=== PATIENT | female | born 1935 | race Caucasian/White ===

== ENCOUNTER 2017-01-20 09:12 | Inpatient (IN) | payer MEDICARE, OTHER ==
[~2017-01-20] VITALS: Ht 170.2 cm; Wt 70.0 kg
--- NOTE | 2017-01-20 09:26 | PD ---
HPI Chief Complaint: agitated Time Seen by Provider: 09:21 Travel History International Travel<30 days: No Contact w/Intl Traveler<30days: No Traveled to known affect area: No History of Present Illness HPI 81-year-old female patient with history of dementia, recently started on Namenda , living with family for 3 weeks, patient's had recently, presents back to the ER today because she has been getting agitated over the last few days, hitting and fighting with family, biting at people, and has been Hammonds acted. She is somewhat disoriented, was found by EMS sitting on the driveway. Does not appear to have any injuries. However, not a reliable historian. It is noted that the new medication can have agitation as a side effect. Family had called to primary care physician and had been told to stop the medication. Last dose was last night. Modifying Factors: None Associated Signs & Symptoms: Disorientation, agitation Risk Factors: New medication, dementia PFSH Social History Tobacco Use: No Allergies-Medications (Allergen,Severity, Reaction): Coded Allergies: Aspirin (Verified Allergy, Severe, Rash, 01/20/17) Penicillin (Verified Allergy, Severe, Rash, 01/20/17) Sulfa (Verified Adverse Reaction, Severe, Nausea/Vomiting, 01/20/17) Reported Meds & Prescriptions Reported Meds & Active Scripts Active Reported Klor-Con 10 (Potassium Chloride) 10 Meq Tab 10 Meq PO DAILY Furosemide 20 Mg Tab 20 Mg PO DAILY Dulcolax Stool Softener (Docusate Sodium) 100 Mg Cap 100 Mg PO BID Synthroid (Levothyroxine Sodium) 175 Mcg Tab 175 Mcg PO DAILY Spiriva Handihaler (Tiotropium Inh) 18 Mcg Cap 18 Mcg INH DAILY 1 capsule = 18 mcg Simvastatin 10 Mg Tab 10 Mg PO DAILY Proair Hfa 8.5 GM Inh (Albuterol Sulfate) 90 Mcg/Act Aer 1 Puff INH Q4H PRN 108 mcg/actuation Nitrostat SL (Nitroglycerin) 0.4 Mg Subl 0.4 Mg SL DIRECTED PRN 1 tablet under the tongue as needed for chest pain. Repeat every 5 minutes for a total of 3 DOSES or call 911 if NO relief. Methadone (Methadone HCl) 10 Mg Tab 10 Mg PO Q6HR PRN Benicar (Olmesartan) 40 Mg Tab 40 Mg PO DAILY Review of Systems ROS Limitations: Altered Mental Status Physical Exam Narrative GENERAL: Well-developed elderly white female who is awake and oriented 2, mildly anxious in the ER but directable. SKIN: Focused skin assessment warm/dry. HEAD: Atraumatic. Normocephalic. EYES: Pupils equal and round. No scleral icterus. No injection or drainage. ENT: No nasal bleeding or discharge. Mucous membranes pink and moist. NECK: Trachea midline. No JVD. CARDIOVASCULAR: Regular rate and rhythm. No murmur appreciated. RESPIRATORY: No accessory muscle use. Clear to auscultation. Breath sounds equal bilaterally. GASTROINTESTINAL: Abdomen soft, non-tender, nondistended. Hepatic and splenic margins not palpable. Pelvis: Stable and nontender to palpation. MUSCULOSKELETAL: No obvious deformities. No clubbing. No cyanosis. No edema. NEUROLOGICAL: Awake and alert. No obvious cranial nerve deficits. Motor grossly within normal limits. Normal speech. PSYCHIATRIC: Mildly anxious, disoriented . Data Data Last Documented VS Vital Signs Date Time Temp Pulse Resp B/P Pulse Ox O2 Delivery O2 Flow Rate FiO2 01/20/17 09:28 98.1 73 20 153/63 99 Orders Electrocardiogram (01/20/17 09:21) Complete Blood Count With Diff (01/20/17 09:21) Comprehensive Metabolic Panel (01/20/17 09:21) Urinalysis - C+S If Indicated (01/20/17 09:21) Chest, Single Ap (01/20/17 09:21) Ct Brain W/O Iv Contrast(Rout) (01/20/17 09:21) Blood Glucose (01/20/17 09:21) Ecg Monitoring (01/20/17:21) Iv Access Insert/Monitor (01/20/17 09:21) Oximetry (01/20/17 09:21) Pelvis, Ap Only (Routine) (01/20/17 09:21) Urine Culture (01/20/17 10:00) Potassium, Serum (K) (01/20/17 10:26) B-Type Natriuretic Peptide (01/20/17 10:44) Blood Culture (01/20/17 12:30) Lactic Acid Sepsis Protocol (01/20/17 12:30) Ceftriaxone Inj (Rocephin Inj) (01/20/17 12:30) Azithromycin Inj (Zithromax Inj) (01/20/17 12:30) Acetaminophen (Tylenol) (01/20/17 13:30) Labs Laboratory Tests Test 01/20/17 01/20/17 08:40 10:00 White Blood Count 5.7 TH/MM3 Red Blood Count 3.69 MIL/MM3 Hemoglobin 11.7 GM/DL Hematocrit 34.1 % Mean Corpuscular Volume 92.4 FL Mean Corpuscular Hemoglobin 31.8 PG Mean Corpuscular Hemoglobin 34.4 % Concent Red Cell Distribution Width 13.6 % Platelet Count 115 TH/MM3 Mean Platelet Volume 9.5 FL Neutrophils (%) (Auto) 44.7 % Lymphocytes (%) (Auto) 41.2 % Monocytes (%) (Auto) 8.6 % Eosinophils (%) (Auto) 5.0 % Basophils (%) (Auto) 0.5 % Neutrophils # (Auto) 2.6 TH/MM3 Lymphocytes # (Auto) 2.4 TH/MM3 Monocytes # (Auto) 0.5 TH/MM3 Eosinophils # (Auto) 0.3 TH/MM3 Basophils # (Auto) 0.0 TH/MM3 CBC Comment DIFF FINAL Differential Comment Sodium Level 139 MEQ/L Potassium Level 5.8 MEQ/L Chloride Level 109 MEQ/L Carbon Dioxide Level 23.3 MEQ/L Anion Gap 7 MEQ/L Blood Urea Nitrogen 86 MG/DL Creatinine 1.86 MG/DL Estimat Glomerular Filtration 26 ML/MIN Rate Random Glucose 104 MG/DL Calcium Level 9.3 MG/DL Total Bilirubin 0.6 MG/DL Aspartate Amino Transf 17 U/L (AST/SGOT) Alanine Aminotransferase 14 U/L (ALT/SGPT) Alkaline Phosphatase 64 U/L B-Type Natriuretic Peptide 83 PG/ML Total Protein 8.2 GM/DL Albumin 3.8 GM/DL Urine Color YELLOW Urine Turbidity CLEAR Urine pH 5.0 Urine Specific [place] 1.014 Urine Protein NEG mg/dL Urine Glucose (UA) NEG mg/dL Urine Ketones NEG mg/dL Urine Occult Blood NEG Urine Nitrite NEG Urine Bilirubin NEG Urine Urobilinogen LESS THAN 2.0 MG/DL Urine Leukocyte Esterase NEG Urine RBC LESS THAN 1 /hpf Urine WBC LESS THAN 1 /hpf Urine Squamous Epithelial <1 /hpf Cells Urine Bacteria RARE /hpf Urine Hyaline Casts 13 /lpf Urine Mucus FEW /lpf Microscopic Urinalysis Comment CATH-CULTURE IND MDM Medical Decision Making Medical Screen Exam Complete: Yes Emergency Medical Condition: Yes Medical Record Reviewed: Yes Interpretation(s) EKG shows NSR, no ST elevation or depression, and no arrhythmias. No significant T-wave inversions. Last 24 hours Impressions Pelvis X-Ray 01/20/17920 Signed Impressions: Service Date/Time: Friday, January 20, 2017 09:35 - CONCLUSION: No acute disease. Sd Wen MD Head CT 01/20/17920 Signed Impressions: Service Date/Time: Friday, January 20, 2017 10:07 - CONCLUSION: Age- appropriate atrophy. No acute findings. Prakash Oliver MD Laboratory Tests Test 01/20/17 01/20/17 08:40 10:00 Red Blood Count 3.69 MIL/MM3 (4.00-5.30) Hematocrit 34.1 % (35.0-46.0) Platelet Count 115 TH/MM3 (150-450) Monocytes (%) (Auto) 8.6 % (0.0-8.0) Eosinophils (%) (Auto) 5.0 % (0.0-4.0) Potassium Level 5.8 MEQ/L (3.5-5.1) Chloride Level 109 MEQ/L (98-107) Blood Urea Nitrogen 86 MG/DL (7-18) Creatinine 1.86 MG/DL (0.50-1.00) Estimat Glomerular Filtration 26 ML/MIN (>89) Rate Urine Bacteria RARE /hpf (NONE) Urine Mucus FEW /lpf (OCC) Differential Diagnosis Agitation, disorientationworsening dementia versus sepsis versus medication side effect versus acute intracranial processes Narrative Course Chest x-ray shows bilateral infiltrates questionable for underlying bilateral pneumonia versus pulmonary edema. BNP is unremarkable. Lab work was otherwise unremarkable for significant lateral light abnormalities. CT of the brain did not show any signs of acute issues or injuries. At this point, considering the pulmonary findings on chest x-ray, patient will be started on IV antibiotics as precaution. Plan to admit the patient for further evaluation and treatment. Case is discussed with Dr. Streeter for admission. Diagnosis Primary Impression: Pneumonia Additional Impression: Altered mental status Admitting Information Admitting Physician Requests: Admit Kenya Bernard MD Jan 20, 2017 09:26
[2017-01-20 09:28] VITALS: BP 153/63; PULSE 73; RESP 20; TEMP 98.1; O2SAT 99
[2017-01-20] MEDS ORDERED: POTA-243 PO (09:39)
[2017-01-20] MEDS ORDERED: SIMV10TA PO (09:39)
[2017-01-20] MEDS ORDERED: METH10TA PO (09:39)
[2017-01-20] MEDS ORDERED: NITR0.4S SL (09:39)
[2017-01-20] MEDS ORDERED: SPIRCAP INH (09:39)
[2017-01-20] MEDS ORDERED: BENI40TA3 PO (09:39)
[2017-01-20] MEDS ORDERED: DULC100C PO (09:39)
[2017-01-20] MEDS ORDERED: FURO20TA PO (09:39)
[2017-01-20] MEDS ORDERED: ALBUAER3 INH (09:39)
[2017-01-20] MEDS ORDERED: SYNT175T PO (09:39)
[2017-01-20 09:59] LABS: AUTOMATED NEUTROPHIL # 2.6 TH/MM3 (1.8-7.7); BASOPHIL % 0.5 % (0.0-2.0); EOSINOPHIL # 0.3 TH/MM3 (0-0.4); HEMATOCRIT 34.1 % (35.0-46.0); HEMO FLAGS DIFF FINAL; LYMPH % 41.2 % (9.0-44.0); LYMPHOCYTE # 2.4 TH/MM3 (1.0-4.8); MEAN CELL VOLUME 92.4 FL (80.0-100.0); MEAN CORPUSCULAR HEMOGLOBIN 31.8 PG (27.0-34.0); MEAN CORPUSCULAR HGB CONC 34.4 % (32.0-36.0); MONO % 8.6 % (0.0-8.0); NEUT % 44.7 % (16.0-70.0); PLATELET COUNT 115 TH/MM3 (150-450); RED BLOOD COUNT 3.69 MIL/MM3 (4.00-5.30); RED CELL DISTRIBUTION WIDTH 13.6 % (11.6-17.2); WHITE BLOOD COUNT 5.7 TH/MM3 (4.0-11.0)
[2017-01-20 10:16] LABS: BACTERIA, URINE RARE /hpf; BLOOD, URINE NEG (NEG); GLUCOSE,URINE NEG (NEG); HYALINE CAST, URINE 13 /lpf (RARE); KETONE, URINE NEG (NEG); MUCUS URINE FEW /lpf (OCC); NITRITE,URINE NEG (NEG); SQUAMOUS EPITHELIAL CELL URINE <1 /hpf (0-5); URINE COLOR YELLOW (YELLW/STRAW)
[2017-01-20 10:17] LABS: COMMENT (UR) CATH-CULTURE IND; CULTURE IF INDICATED CATH CULTURE IND
[2017-01-20 10:19] LABS: ALKALINE PHOSPHATASE 64 U/L (45-117); TOTAL BILIRUBIN ADULT 0.6 MG/DL (0.2-1.0)
[2017-01-20 10:20] LABS: ALT (GPT) 14 U/L (10-53); ANION GAP 7 MEQ/L (5-15); BICARBONATE 23.3 MEQ/L (21.0-32.0); BLOOD UREA NITROGEN 86 MG/DL (7-18); CHLORIDE 109 MEQ/L (98-107); GLOMERULAR FILTRATION RATE 26 ML/MIN (>89); SODIUM (NA) 139 MEQ/L (136-145)
[2017-01-20 10:21] LABS: AST (GOT) 17 U/L (15-37); POTASSIUM 5.8 MEQ/L (3.5-5.1)
--- NOTE | 2017-01-20 10:27 | RADRPT ---
EXAM DATE/TIME: 01/20/2017 09:35 [facility] COMPARISON: No previous studies available for comparison. INDICATIONS : Pelvic discomfort. MEDICAL HISTORY : None. SURGICAL HISTORY : None. ENCOUNTER: Initial ACUITY: 1 day PAIN SCORE: Non-responsive. LOCATION: pelvis FINDINGS: A single frontal view of the pelvis demonstrates no evidence of fracture. The bony pelvic ring is in tact. Bony mineralization is normal. The soft tissues are intact. CONCLUSION: No acute disease. Sd Wen MD on January 20, 2017 at 10:25 Board Certified Radiologist. This report was verified electronically.
--- NOTE | 2017-01-20 10:31 | RADRPT ---
EXAM DATE/TIME: 01/20/2017 09:39 [facility] COMPARISON: No previous studies available for comparison. INDICATIONS : Syncope. MEDICAL HISTORY : None. SURGICAL HISTORY : None. ENCOUNTER: Initial ACUITY: 1 day PAIN SCORE: Non-responsive. LOCATION: Bilateral chest FINDINGS: There is diffuse patchiness within both lungs consistent with moderate pulmonary edema versus pneumon ia. Clinical correlation is recommended. The heart is top normal in size. CONCLUSION: 1. Diffuse patchiness within both lungs consistent with moderate pulmonary edema versus pneumonia. Clinical correlation is recommended. Sd Wen MD on January 20, 2017 at 10:24 Board Certified Radiologist. This report was verified electronically.
--- NOTE | 2017-01-20 10:47 | RADRPT ---
EXAM DATE/TIME: 01/20/2017 10:07 [facility] COMPARISON: No previous studies available for comparison. INDICATIONS : Altered mental status. RADIATION DOSE: 38.71 CTDIvol (mGy) MEDICAL HISTORY : Congestive heart failure. SURGICAL HISTORY : ENCOUNTER: Initial ACUITY: 1 day PAIN SCALE: 2/10 LOCATION: TECHNIQUE: Multiple contiguous axial images were obtained of the head. Using automated exposure control and adj ustment of the mA and/or kV according to patient size, radiation dose was kept as low as reasonably a chievable to obtain optimal diagnostic quality images. FINDINGS: CEREBRUM: The ventricles are normal for age. No evidence of midline shift, mass lesion, hemorrhage or acute in farction. No extra-axial fluid collections are seen. POSTERIOR FOSSA: The cerebellum and brainstem are intact. The 4th ventricle is midline. The cerebellopontine angle i s unremarkable. EXTRACRANIAL: The visualized portion of the orbits is intact. SKULL: The calvaria is intact. No evidence of skull fracture. CONCLUSION: Age-appropriate atrophy. No acute findings. Prakash Oliver MD on January 20, 2017 at 10:44 Board Certified Radiologist. This report was verified electronically.
[2017-01-20] MEDS ORDERED: cefTRIAXone INJ 1,000 MG in SODIUM CHLORIDE 0.9% INJ 100 ML IV ONE (12:30)
[2017-01-20] MEDS ORDERED: AZITHROMYCIN INJ 500 MG in SODIUM CHLOR 0.9% 250 ML INJ 250 ML IV ONE (12:30)
[2017-01-20] MEDS ORDERED: ACETAMINOPHEN 325 MG TAB PO ONE (13:30)
[2017-01-20] MEDS ORDERED: ONDANSETRON HCL 4 MG/2 ML VIAL IV PUSH ONE (14:15)
[2017-01-20] MEDS ORDERED: ONDANSETRON HCL 4 MG/2 ML VIAL IVP PRN (14:30)
[2017-01-20] MEDS ORDERED: BISACODYL 10 MG SUPP RECTAL PRN (14:30)
[2017-01-20] MEDS ORDERED: ACETAMINOPHEN 325 MG TAB PO PRN ×2 (14:30→22:00)
[2017-01-20] MEDS ORDERED: NALOXONE HCL 0.4 MG/ML AMP IV PRN (14:30)
[2017-01-20] MEDS ORDERED: ACETAMINOPHEN/HYDROcodone 325 MG/5 MG TAB PO PRN (14:30)
[2017-01-20] MEDS ORDERED: SODIUM CHLORIDE 0.9% FLUSH 10 ML FLUSH IV FLUSH PRN (14:30)
--- NOTE | 2017-01-20 14:39 | EKG ---
Date Performed: 01/20/2017 Time Performed: 09:47:31 PTAGE: 81 years EKG: Marked baseline artifact Sinus rhythm LOW QRS VOLTAGE IN PRECORDIAL LEADS BORDERLINE ECG I would repeat the electrocardiogram given the rosario boptimal quality NO PREVIOUS TRACING DOCTOR: Neri Taylor Interpretating Date/Time 01/20/2017 14:37:57
[2017-01-20] MEDS ORDERED: HALOPERIDOL LACTATE 5 MG/ML AMP IM PRN (14:45)
[2017-01-20 14:59] VITALS: BP 134/61; PULSE 77; RESP 20; O2SAT 96
[2017-01-20] MEDS ORDERED: ALBUTEROL SULFATE 90 MCG/ACT HFA 18 GM INHALER INH PRN (15:15)
--- NOTE | 2017-01-20 15:58 | EC ---
Study Study Date:01/20/2017 STUDY CONCLUSIONS SUMMARY - Left ventricle: The cavity size was normal. Wall thickness was normal. Systolic function was normal. The estimated ejection fraction was in the range of 50% to 55%. Wall motion was normal; there were no regional wall motion abnormalities. - Aortic valve: Valve area: 2.17cm^2 (Vmax). - Mitral valve: Valve area by pressure half-time: 2.12cm^2. - Pulmonary arteries: Systolic pressure was moderately increased. If LV function is below 40, please consider prescribing an ACEI or ARB or document rationale for non-use. PROCEDURE DATA STUDY STATUS: Elective. Procedure: Transthoracic echocardiography. Image quality was fair. Scanning was performed from the parasternal, apical, and subcostal acoustic windows. Study completion: The patient tolerated the procedure well. Transthoracic echocardiography. M-mode, complete 2D, complete spectral Doppler, and color Doppler. Height: Height: 67in. Weight: Weight: 153.7lb. Body mass index: BMI: 24.1kg/m^2. Body surface area: BSA: 1.81m^2. Patient status: Inpatient. CARDIAC ANATOMY LEFT VENTRICLE: The cavity size was normal. Wall thickness was normal. Systolic function was normal. The estimated ejection fraction was in the range of 50% to 55%. Wall motion was normal; there were no regional wall motion abnormalities. AORTIC VALVE: Trileaflet; normal thickness leaflets. Doppler: Transvalvular velocity was within the normal range. There was no stenosis. No regurgitation. Valve area: 2.17cm^2 (Vmax). Indexed valve area: 1.2cm^2/m^2 (Vmax). Peak gradient: 14mm Hg (S). AORTA: Aortic root: The aortic root was normal in size. MITRAL VALVE: Structurally normal valve. Doppler: Transvalvular velocity was within the normal range. There was no evidence for stenosis. Trace regurgitation. Valve area by pressure half-time: 2.12cm^2. Indexed valve area by pressure half-time: 1.17cm^2/m^2. Peak gradient: 2mm Hg (D). LEFT ATRIUM: The atrium was normal in size. RIGHT VENTRICLE: The cavity size was normal. Wall thickness was normal. PULMONIC VALVE: Doppler: Transvalvular velocity was within the normal range. There was no evidence for stenosis. No regurgitation. TRICUSPID VALVE: Structurally normal valve. Doppler: Transvalvular velocity was within the normal range. No regurgitation. Peak gradient: 42mm Hg (D). PULMONARY ARTERY: The main pulmonary artery was normal-sized. Systolic pressure was moderately increased. RIGHT ATRIUM: The atrium was normal in size. PERICARDIUM: There was no pericardial effusion. SYSTEMIC VEINS: Inferior vena cava: The vessel was normal in size. Patient weight: 153.7lb _Ejection fraction:_ 65-75% _Fractional shortening:_ 32% up to 5Kg 5-11.5Kg 11.6-22.9Kg 23-45Kg 45-57Kg Aortic Root 7-13 <17 13-22 17-27 17-27 LA diam 6-13 <23 24-38 33-47 37-40 RVID 10-17 7-15 7-15 7-18 8-17 LVIDd 12-22 <32 24-38 33-47 37-40 LVPW 2-4 3-6 5-7 6-8 7-8 IVS 2-4 3-6 5-7 6-8 7-8 BASIC MEASUREMENTS ADULT NORMAL Left ventricle LV internal dimension, ED, chordal *35.4 mm 43-52 level, PLAX LV internal dimension, ES, chordal *22.8 mm 23-38 level, PLAX Fractional shortening, chordal level, 36 % >29 PLAX LV posterior wall thickness, ED 8.2 mm IVS/LVPW ratio, ED 1.15 <1.3 Volume, ED, MOD, 1-plane 42 ml Volume, ES, MOD, 1-plane 14 ml Ejection fraction, MOD, 1-plane 67 % Stroke volume, MOD, 1-plane 28 ml Volume index, ED, MOD, 1-plane 23 ml/m^2 Volume index, ES, MOD, 1-plane 8 ml/m^2 Stroke index, MOD, 1-plane 15.5 ml/m^2 Ventricular septum Septal thickness, ED 9.43 mm Aortic valve Leaflet separation 18 mm 15-26 Aorta Root diameter, ED 27 mm Left atrium Anterior-posterior dimension 25 mm Anterior-posterior dimension index 1.38 cm/m^2 <2.2 Right ventricle RV internal dimension, ED, PLAX 24.3 mm 19-38 BASIC MEASUREMENTS ADULT NORMAL Aortic valve Leaflet separation 18 mm 15-26 Aorta Root diameter, ED 26 mm 20-37 DOPPLER MEASUREMENTS ADULT NORMAL Aortic valve Peak velocity, S 185 cm/s Peak gradient, S 14 mm Hg Valve area, Vmax 2.17 cm^2 Valve area index, Vmax 1.2 cm^2/m^2 Mitral valve Peak E-wave velocity 73.5 cm/s Peak A-wave velocity 116 cm/s Pressure half-time 104 ms Peak gradient, D 2 mm Hg Peak E/A ratio 0.6 Valve area, pressure half-time 2.12 cm^2 Valve area index, pressure half-time 1.17 cm^2/m^2 Tricuspid valve Peak gradient, D 42 mm Hg Maximal inflow velocity 324 cm/s Systemic veins Estimated CVP 10 mm Hg Pulmonic valve Peak velocity, S 126 cm/s LEGEND: Mean values are shown as u=mean value. Asterisk (*) veliz values outside specified normal range. Prepared and signed by Ashley Villalta [id number]
[2017-01-20] MEDS ORDERED: SODIUM CHLOR 0.9% 1000 ML INJ 1,000 ML IV SCH (16:00)
--- NOTE | 2017-01-20 16:47 | HHI.HP ---
HPI Service [facility] Primary Care Physician No Primary Care Physician Admission Diagnosis pneumonia/Hammonds act/agitation Diagnoses: Chief Complaint: agitation Travel History International Travel<30 Days: No Contact w/Intl Traveler <30 Da: No Traveled to Known Affected Are: No History of Present Illness 81-year-old female with history of dementia, hypothyroidism, HTN, HLD, COPD on home O2, CAD, possible CHF, presents under Hammonds act by [employer] for agitation. The Hammonds Act states "Ashley resides with her son, [id number]-hri, and grandchildren. [id number]-[id number] stated that she woke up angry. Became combative with family. Ashley fell in her driveway and refused to get up. Ashley refused any and all medical attention. She is on oxygen and has been without it for approximately one hour and thirty minutes. Ashley suffers from dementia and Alzheimer's and takes medication for it. Ashley is unable to determine if she needs care." Currently the patient is seen in the ER, she is awake, alert, but not oriented, only moaning. She does not answer any questions or follow any commands. Unable to obtain any reliable information from the patient therefore history collected from medical records and staff. Sitter at bedside states the patient was complaining of pain earlier but did not locate the pain. The sitter also states the patient was saying she did not want to live anymore. Per the VESSEL SPECIALIST, patient is transferred via [facility] , and no family has arrived to visit the patient. Reportedly the patient's one month ago and she has been declining ever since. Recently the patient's PCP started her on Namenda, however the family became concerned that this agitation may be a side effect therefore they called the PCP who recommended she stop the medication. Her last dose was last night . Upon arrival to the ER, CBC unremarkable, BMP with K5.8 (hemolyzed sample) , creatinine 1.86. Urinalysis negative. CXR showed diffuse patchiness in both lungs consistent with moderate pulmonary edema versus pneumonia. The patient started on IV Rocephin/azithromycin for pneumonia. Review of Systems ROS Limitations: Altered Mental Status, Poor Historian Past Family Social History Past Medical History dementia hypothyroidism HTN HLD COPD on home O2 CAD possible CHF Past Surgical History Unable to obtain Reported Medications Klor-Con 10 (Potassium Chloride) 10 Meq Tab 10 Meq PO DAILY Furosemide 20 Mg Tab 20 Mg PO DAILY Dulcolax Stool Softener (Docusate Sodium) 100 Mg Cap 100 Mg PO BID Synthroid (Levothyroxine Sodium) 175 Mcg Tab 175 Mcg PO DAILY Spiriva Handihaler (Tiotropium Inh) 18 Mcg Cap 18 Mcg INH DAILY 1 capsule = 18 mcg Simvastatin 10 Mg Tab 10 Mg PO DAILY Proair Hfa 8.5 GM Inh (Albuterol Sulfate) 90 Mcg/Act Aer 1 Puff INH Q4H PRN 108 mcg/actuation Nitrostat SL (Nitroglycerin) 0.4 Mg Subl 0.4 Mg SL DIRECTED PRN 1 tablet under the tongue as needed for chest pain. Repeat every 5 minutes for a total of 3 DOSES or call 911 if NO relief. Methadone (Methadone HCl) 10 Mg Tab 10 Mg PO Q6HR PRN Benicar (Olmesartan) 40 Mg Tab 40 Mg PO DAILY Allergies: Coded Allergies: Aspirin (Verified Allergy, Severe, Rash, 01/20/17) Penicillin (Verified Allergy, Severe, Rash, 01/20/17) Sulfa (Verified Adverse Reaction, Severe, Nausea/Vomiting, 01/20/17) Active Ordered Medications Current Medications Medications (Trade) Dose Ordered Sig/May Route Start Time Stop Time Status Last Admin (Ventolin Hfa Inh) 1 puff Q4H PRN INH 01/20/17 15:15 (Spiriva Inh) 18 mcg DAILY INH 01/21/17 09:00 (Synthroid) 75 mcg DAILY@0600 PO 01/21/17 06:00 (Cozaar) 100 mg DAILY PO 01/21/17 09:00 Pravastatin Sodium 20 mg 20 mg DAILY PO 01/21/17 09:00 (NS 1000 ml Inj) 1,000 ml @ 70 mls/hr [id number] IV 01/20/17 16:00 01/20/17 16:47 (NS Flush) 2 ml UNSCH PRN IV FLUSH 01/20/17 14:30 (NS Flush) 2 ml BID IV FLUSH 01/20/17 21:00 (Zofran Inj) 4 mg Q6H PRN IVP 4/18/17 14:30 01/20/17 16:49 (Dulcolax Supp) 10 mg DAILY PRN RECTAL 01/20/17 14:30 (Tylenol) 650 mg Q6H PRN PO 01/20/17 14:30 ([place] 5-325 Mg) 1 tab Q6H PRN PO 01/20/17 14:30 01/20/17 16:04 Naloxone HCl 0.4 mg 0.4 mg UNSCH PRN IV 01/20/17 14:30 Ceftriaxone Sodium 1000 mg/ Sodium Chloride 100 ml @ 200 mls/hr Q24H IV 01/21/17 14:00 (Zithromax Inj/ NS 250 ml Inj) 250 ml @ 250 mls/hr Q24H IV 01/21/17 16:00 (Haldol Inj) 2 mg Q8H PRN IM 01/20/17 14:45 01/20/17 16:48 (Synthroid) 100 mcg DAILY@0600 PO 01/21/17 06:00 Family History Unable to obtain Social History Unable to obtain Physical Exam Vital Signs Vital Signs Date Time Temp Pulse Resp B/P Pulse Ox O2 Delivery O2 Flow Rate FiO2 01/20/17 15:00 20 01/20/17 14:59 77 20 134/61 96 Room Air 01/20/17 09:28 98.1 73 20 153/63 99 Physical Exam GENERAL: Elderly female patient in NAD. Awake alert, not oriented, only moaning , not answering questions or following commands. SKIN: Warm and dry. No rash. HEAD: Normocephalic. Atraumatic. EYES: Pupils equal and round. No scleral icterus. No injection or drainage. ENT: No nasal bleeding or discharge. Mucous membranes pink and moist. NECK: Supple. Trachea midline. CARDIOVASCULAR: Regular rate and rhythm. S1, S2 noted. No murmur appreciated. RESPIRATORY: No accessory muscle use. Clear to auscultation. Breath sounds equal bilaterally. GASTROINTESTINAL: Abdomen soft, non-tender, nondistended. Normoactive bowel sounds x4. MUSCULOSKELETAL: No obvious deformities. Extremities without clubbing, cyanosis , or edema. NEUROLOGICAL: Awake and alert. Motor grossly within normal limits. PSYCHIATRIC: Anxious mood; insight and judgment poor. Laboratory Laboratory Tests Test 01/20/17 01/20/17 01/20/17 08:40 10:00 13:05 White Blood Count 5.7 Red Blood Count 3.69 Hemoglobin 11.7 Hematocrit 34.1 Mean Corpuscular Volume 92.4 Mean Corpuscular Hemoglobin 31.8 Mean Corpuscular Hemoglobin 34.4 Concent Red Cell Distribution Width 13.6 Platelet Count 115 Mean Platelet Volume 9.5 Neutrophils (%) (Auto) 44.7 Lymphocytes (%) (Auto) 41.2 Monocytes (%) (Auto) 8.6 Eosinophils (%) (Auto) 5.0 Basophils (%) (Auto) 0.5 Neutrophils # (Auto) 2.6 Lymphocytes # (Auto) 2.4 Monocytes # (Auto) 0.5 Eosinophils # (Auto) 0.3 Basophils # (Auto) 0.0 CBC Comment DIFF FINAL Differential Comment Sodium Level 139 Potassium Level 5.8 Chloride Level 109 Carbon Dioxide Level 23.3 Anion Gap 7 Blood Urea Nitrogen 86 Creatinine 1.86 Estimat Glomerular Filtration 26 Rate Random Glucose 104 Calcium Level 9.3 Total Bilirubin 0.6 Aspartate Amino Transf 17 (AST/SGOT) Alanine Aminotransferase 14 (ALT/SGPT) Alkaline Phosphatase 64 B-Type Natriuretic Peptide 83 Total Protein 8.2 Albumin 3.8 Urine Color YELLOW Urine Turbidity CLEAR Urine pH 5.0 Urine Specific [place] 1.014 Urine Protein NEG Urine Glucose (UA) NEG Urine Ketones NEG Urine Occult Blood NEG Urine Nitrite NEG Urine Bilirubin NEG Urine Urobilinogen LESS THAN 2.0 Urine Leukocyte Esterase NEG Urine RBC LESS THAN 1 Urine WBC LESS THAN 1 Urine Squamous Epithelial <1 Cells Urine Bacteria RARE Urine Hyaline Casts 13 Urine Mucus FEW Microscopic Urinalysis Comment CATH-CULTURE IND Lactic Acid Level 1.4 Date/Time Procedure Status Source Growth 01/20/17 12:55 Aerobic Blood Culture Received Blood Peripheral Pending 01/20/17 12:55 Anaerobic Blood Culture Received Blood Peripheral Pending 01/20/17 10:00 Urine Culture Received Urine Catheterized Urine Pending Result Diagram: 01/20/1740 01/20/17839 Imaging Last Impressions Pelvis X-Ray 01/20/17920 Signed Impressions: Service Date/Time: Friday, January 20, 2017 09:35 - CONCLUSION: No acute disease. Sd Wen MD Head CT 01/20/17920 Signed Impressions: Service Date/Time: Friday, January 20, 2017 10:07 - CONCLUSION: Age- appropriate atrophy. No acute findings. Prakash Oliver MD Chest X-Ray 01/20/17 0921 Signed Impressions: Service Date/Time: Friday, January 20, 2017 09:39 - CONCLUSION: 1. Diffuse patchiness within both lungs consistent with moderate pulmonary edema versus pneumonia. Clinical correlation is recommended. Sd Wen MD Assessment and Plan Assessment and Plan 81-year-old female with history of dementia, hypothyroidism, HTN, HLD, COPD on home O2, CAD, possible CHF, presents under Hammonds act by [employer] for agitation. The Hammonds Act states "Ashley resides with her son, [id number], and grandchildren. [id number] stated that she woke up angry. Became combative with family. Ashley fell in her driveway and refused to get up. Ashley refused any and all medical attention. She is on oxygen and has been without it for approximately one hour and thirty minutes. Ashley suffers from dementia and Alzheimer's and takes medication for it. Ashley is unable to determine if she needs care." Currently the patient is seen in the ER, she is awake, alert, but not oriented, only moaning. She does not answer any questions or follow any commands. Unable to obtain any reliable information from the patient therefore history collected from medical records and staff. Acute metabolic encephalopathy: Likely multifactorial with underlying dementia compounded with infection, pneumonia. Head CT images reviewed, unremarkable. CBC wnl, BMP with K5.8 (hemolyzed sample), creatinine 1.86. Urinalysis negative. Neuro checks. Consult PT/OT/ST. Avoid sedating medications/Benzos. Dementia with Agitation: under Hammonds Act. Hold Namenda as patient's PCP concerned patient may be having adverse reaction. Consult psychiatry. Haldol IM prn. Continue sitter. Community-acquired pneumonia: CXR showed diffuse patchiness in both lungs consistent with moderate pulmonary edema versus pneumonia. Continue with IV Rocephin/azithromycin. Check echo to eval for CHF. Gentle IVF. Monitor for improvement. Chronic respiratory failure on home O2 secondary to COPD: Unclear how many liters of oxygen she uses at home. Continue O2 via NC. Continue patient's Spiriva. Ventolin inhaler and Duonebs as needed. Hyperkalemia: K 5.9, hemolyzed sample. Check stat repeat K. Monitor BMP. CAMRYN: Cr 1.86, elevated BUN 86. Unknown baseline. Give gentle IVF. Avoid nephrotoxins. Repeat BMP in am. Hypothyroidism: chronic, continue patient's Synthroid. Check TSH in am. HTN/HLD: chronic, continue patient's Benicar and simvastatin. Monitor BP, adjust antihypertensives as needed. CAD, possible CHF: patient on Lasix as outpatient. BNP wnl. Check echocardiogram to eval for CHF. Hold Lasix for now with CAMRYN. Methadone Use: verified on E-forcse, patient last filled Methadone 10mg q6h # 120tabs on 12/24/[address] Jack in [place], [place], and previously prescribed by Dr. Rufino Kirby in [place]. Will hold methadone for now as patient is encephalopathic as above. Consider restarting if patient becomes more alert. DVT Prophylaxis: teds/SCDs Written by Patricia Villela, acting as scribe for Dr. Streeter on 01/20/17 at 16: 47. This note was transcribed by scribe Patricia Villela. I, Dr. Meseret Streeter personally performed the history, physical exam, and medical decision making; and confirmed the accuracy of the information in the transcribed note. Discussed Condition With Patient, sitter at bedside, ED MD, ED RN Physician Certification 2 Midnight Certification Type: Admission for Inpatient Services Order for Inpatient Services The services are ordered in accordance with Medicare regulations or non- Medicare payer requirements, as applicable. In the case of services not specified as inpatient-only, they are appropriately provided as inpatient services in accordance with the 2-midnight benchmark. Estimated LOS (days): 3 days is the estimated time the patient will need to remain in the hospital, assuming treatment plan goals are met and no additional complications. Post-Hospital Plan: Not yet determined Patricia Villela PA-C Jan 20, 2017 16:47 Meseret Streeter MD Jan 20, 2017 19:19
[2017-01-20 17:01] VITALS: RESP 20
[2017-01-20] MEDS ORDERED: RESP: ALBUTEROL 2.5 MG/IPRATROPIUM 0.5 MG NEB (PRN) NEB (18:45)
[2017-01-20] MEDS ORDERED: SODIUM POLYSTYRENE SULFONATE SUSP 15 GM/60 ML CUP PO ONE (20:00)
[2017-01-20] MEDS ORDERED: SODIUM CHLORIDE 0.9% FLUSH 10 ML FLUSH IV FLUSH SCH (21:00)
[2017-01-20] MEDS ORDERED: ALUMINUM/MAGNESIUM/SIMETH 30 ML CUP PO PRN (22:00)
[2017-01-20] MEDS ORDERED: MAGNESIUM HYDROXIDE SUSP 30 ML CUP PO PRN (22:00)
[2017-01-20] MEDS ORDERED: LORazepam 2 MG/ML VIAL - age > 65 yrs IM PRN (22:00)
[2017-01-20] MEDS ORDERED: LORazepam 0.5 MG TAB age > 65 yrs PO PRN (22:00)
[2017-01-21] MEDS ORDERED: LEVOTHYROXINE SODIUM 75 MCG TAB PO SCH (06:00)
[2017-01-21] MEDS ORDERED: LEVOTHYROXINE SODIUM 100 MCG TAB PO SCH (06:00)
[2017-01-21] MEDS ORDERED: TIOTROPIUM BROMIDE 18 MCG INH INH SCH (09:00)
[2017-01-21] MEDS ORDERED: PRAVASTATIN SOD 20 MG TAB PO SCH (09:00)
[2017-01-21] MEDS ORDERED: LOSARTAN 50 MG TAB PO SCH (09:00)
[2017-01-21] MEDS ORDERED: cefTRIAXone INJ 1,000 MG in SODIUM CHLORIDE 0.9% INJ 100 ML IV SCH (14:00)
[2017-01-21] MEDS ORDERED: AZITHROMYCIN INJ 500 MG in SODIUM CHLOR 0.9% 250 ML INJ 250 ML IV SCH (16:00)
== END 2017-01-20 22:29 | DRG 193 ==
LOC: NEPC 09:12 → NEDA 13:28 → NEDH 17:26
PROVIDERS: ADMIT Family Medicine; ATTEND Family Medicine
DX: J18.9 Pneumonia, unspecified organism (principal); G93.41 Metabolic encephalopathy; N17.9 Acute kidney failure, unspecified; F02.81 Dementia in other diseases classified elsewhere, unspecified severity, with behavioral disturbance; J96.10 Chronic respiratory failure, unspecified whether with hypoxia or hypercapnia; J44.0 Chronic obstructive pulmonary disease with (acute) lower respiratory infection; G30.9 Alzheimer's disease, unspecified; E03.9 Hypothyroidism, unspecified; E78.5 Hyperlipidemia, unspecified; I10 Essential (primary) hypertension; I25.10 Atherosclerotic heart disease of native coronary artery without angina pectoris; Z99.81 Dependence on supplemental oxygen
CPT/HCPCS: 70450; 71010; 72170; 80053; 81001; 83605; 83880; 84132; 85025; 87040; 87086; 93005; 93306; J0456; J0696; J1630; J2405; J7030; J7050

== ENCOUNTER 2017-01-20 22:30 | Inpatient (IN) | payer OTHER, MEDICARE ==
[~2017-01-20] VITALS: Ht 152.4 cm; Wt 84.0 kg
[2017-01-20 22:30] VITALS: BP 141/113; PULSE 101; RESP 20; O2SAT 94
[~2017-01-20 22:30] MED LIST: ALBUAER3 INH; BENI40TA3 PO; DULC100C PO; FURO20TA PO; METH10TA PO; NITR0.4S SL; POTA-243 PO; SIMV10TA PO; SPIRCAP INH; SYNT175T PO
[2017-01-20] MEDS ORDERED: LORazepam 2 MG/ML VIAL - age > 65 yrs IM PRN (23:00)
[2017-01-20] MEDS ORDERED: LORazepam 0.5 MG TAB age > 65 yrs PO PRN (23:00)
[2017-01-20] MEDS ORDERED: ACETAMINOPHEN 325 MG TAB PO PRN (23:00)
[2017-01-20] MEDS ORDERED: ALUMINUM/MAGNESIUM/SIMETH 30 ML CUP PO PRN (23:00)
[2017-01-20] MEDS ORDERED: MAGNESIUM HYDROXIDE SUSP 30 ML CUP PO PRN (23:00)
[2017-01-21 05:46] VITALS: BP 133/63; PULSE 81; RESP 16; TEMP 97.5; O2SAT 91
[2017-01-21] MEDS ORDERED: SODIUM POLYSTYRENE SULFONATE SUSP 15 GM/60 ML CUP PO ONE (08:15)
--- NOTE | 2017-01-21 09:29 | PD.CONS ---
[facility] By [facility] Reason for Consult Medical management Primary Care Physician Unknown Diagnoses: History of Present Illness 81-year-old female with history of dementia, hypothyroidism, HTN, HLD, COPD on home O2, CAD, possible CHF, presents under Hammonds act by [employer] for agitation. The Hammonds Act states "Ashley resides with her son, [id number], and grandchildren. [id number]-[id number] stated that she woke up angry. Became combative with family. Ashley fell in her driveway and refused to get up. Ashley refused any and all medical attention. She is on oxygen and has been without it for approximately one hour and thirty minutes. Ashley suffers from dementia and Alzheimer's and takes medication for it. Ashley is unable to determine if she needs care." Currently the patient is in the med/psych unit. She is awake but will not open her eyes. She will not follow commands. She shakes her head no when asked if she has any f/c, n/v, shortness of breath, chest pain or abdominal pain. Patient is a poor historian and I am unable to obtain any reliable information from the patient therefore history collected from review of the medical records. Review of Systems Attempted 10 point review of systems the patient not participatory secondary to cognitive impairment Past Family Social History Allergies: Coded Allergies: Aspirin (Verified Allergy, Severe, Rash, 01/20/17) Penicillin (Verified Allergy, Severe, Rash, 01/20/17) Sulfa (Verified Adverse Reaction, Severe, Nausea/Vomiting, 01/20/17) Past Medical History Dementia Hypothyroidism HTN HLD COPD on home O2 CAD possible CHF Past Surgical History Patient denies any previous surgical procedures but due to patients current mental status validity of response is questioned Reported Medications Klor-Con 10 (Potassium Chloride) 10 Meq Tab 10 Meq PO DAILY Furosemide 20 Mg Tab 20 Mg PO DAILY Dulcolax Stool Softener (Docusate Sodium) 100 Mg Cap 100 Mg PO BID Synthroid (Levothyroxine Sodium) 175 Mcg Tab 175 Mcg PO DAILY Spiriva Handihaler (Tiotropium Inh) 18 Mcg Cap 18 Mcg INH DAILY 1 capsule = 18 mcg Simvastatin 10 Mg Tab 10 Mg PO DAILY Proair Hfa 8.5 GM Inh (Albuterol Sulfate) 90 Mcg/Act Aer 1 Puff INH Q4H PRN 108 mcg/actuation Nitrostat SL (Nitroglycerin) 0.4 Mg Subl 0.4 Mg SL DIRECTED PRN 1 tablet under the tongue as needed for chest pain. Repeat every 5 minutes for a total of 3 DOSES or call 911 if NO relief. Methadone (Methadone HCl) 10 Mg Tab 10 Mg PO Q6HR PRN Benicar (Olmesartan) 40 Mg Tab 40 Mg PO DAILY Active Ordered Medications Current Medications Medications (Trade) Dose Ordered Sig/May Route Start Time Stop Time Status Last Admin (Ativan) 0.5 mg Q12H PRN PO 01/20/17 23:00 (Ativan Inj) 0.5 mg Q12H PRN IM 01/20/17 23:00 01/20/17 23:00 (Tylenol) 650 mg Q4H PRN PO 01/20/17 23:00 01/21/17 00:04 (Milk Of Magnesia Liq) 30 ml DAILY PRN PO 01/20/17 23:00 (Mag-Al Plus Susp Liq) 30 ml Q6H PRN PO 01/20/17 23:00 Sodium Polystyrene Sulfonate 15 gm 15 gm ONCE ONCE PO 01/21/17 08:15 01/21/17 08:16 UNV (Rocephin Inj/NS Inj) 100 ml @ 200 mls/hr Q24H IV 01/21/17 08:15 UNV (Zithromax) 250 mg DAILY PO 01/21/17 09:00 UNV Family History Unable to obtain due to patient's cognitive impairment Social History Unable to obtain due to patient's cognitive impairment Physical Exam Vital Signs Vital Signs Date Time Temp Pulse Resp B/P Pulse Ox O2 Delivery O2 Flow Rate FiO2 01/21/17 05:46 97.5 81 16 133/63 91 01/20/17 22:30 101 20 141/113 94 Physical Exam GENERAL: Elderly female patient in NAD. Awake, not oriented, will not open her eyes. Will not follow commands. SKIN: Warm and dry. No rash. HEAD: Normocephalic. Atraumatic. EYES: Patient will not open her eyes. ENT: No nasal bleeding or discharge. NECK: Supple. Trachea midline. CARDIOVASCULAR: Regular rate and rhythm. S1, S2 noted. No murmur appreciated. RESPIRATORY: No accessory muscle use. Clear to auscultation but poor effort. Breath sounds equal bilaterally. GASTROINTESTINAL: Abdomen soft, non-tender, nondistended. Normoactive bowel sounds x4. MUSCULOSKELETAL: No obvious deformities. Extremities without clubbing, cyanosis , or edema. NEUROLOGICAL: Awake. Will not follow commands. PSYCHIATRIC: Insight and judgment poor. Laboratory 01/20/17 0840 Imaging Pelvis X-Ray 01/20/17920 Signed Impressions: Service Date/Time: Friday, January 20, 2017 09:35 - CONCLUSION: No acute disease. Sd Wen MD Head CT 01/20/17920 Signed Impressions: Service Date/Time: Friday, January 20, 2017 10:07 - CONCLUSION: Age- appropriate atrophy. No acute findings. Prakash Oliver MD Chest X-Ray 01/20/17920 Signed Impressions: Service Date/Time: Friday, January 20, 2017 09:39 - CONCLUSION: 1. Diffuse patchiness within both lungs consistent with moderate pulmonary edema versus pneumonia. Clinical correlation is recommended. Sd Wen MD Assessment and Plan Assessment and Plan 81-year-old female with history of dementia admitted under Hammonds act by [employer] for increased agitation. Hospitalist service consulted for medical management of hypothyroidism, HTN, HLD, COPD on home O2, CAD, possible CHF and CAP. //Dementia with increased agitation admitted under Hammonds Act - Management per psychiatric team //Acute metabolic encephalopathy - Likely multifactorial with underlying dementia compounded with infection, pneumonia. - Head CT images reviewed and are unremarkable for acute process. - CBC wnl, Urinalysis negative - Consult PT/OT - Avoid sedating medications/Benzos. //Hyperkalemia - Initial potassium 5.8, repeat level yesterday 6.3 - possible hemolyzed sample. - Follow up on today's lab results which are ordered for this morning but have not yet been drawn. Order for nursing staff placed to please draw labs. - Kayexalate 30 g by mouth once - DuoNeb's for COPD and chronic respiratory failure ordered which should help with normalization of potassium level. //CAMRYN - Creatinine 1.86, unknown baseline - Possibly prerenal, due to poor oral intake and dehydration - Avoid nephrotoxic agents - Gentle IV fluid hydration - A.m. labs pending //Suspected community acquired pneumonia versus possible CHF - Chest x-ray at admission shows diffuse patchiness within both lungs consistent with moderate pulmonary edema versus pneumonia - IV ceftriaxone and by mouth azithromycin //Diastolic CHF - order BNP - Echocardiogram completed revealing HFpEF - monitor for s/sxs of fluid overload - hold home Lasix dose for now //Chronic respiratory failure on home O2 secondary to COPD - Unclear how many liters of oxygen she uses at home - Continue O2 via NC. - Continue patient's Spiriva - Duonebs //HTN - BP 133/63 - hold Benicar due to hyperkalemia and CAMRYN - monitor BP - clonidine prn with parameters //Hypothyroidism, chronic - continue patient's Synthroid - Check TSH //HLD: chronic - continue patient's simvastatin //Methadone Use - verified on E-forcse, patient last filled Methadone 10mg q6h #120tabs on by Dr. Lane Jack in [place], [place], and previously prescribed by Dr. Rufino Kirby in [place]. - Will hold methadone for now as patient is encephalopathic as above. Consider restarting if patient becomes more alert. DVT Prophylaxis: TEDs/SCDs Discussed with patient, nursing staff and Dr. Staley Discussed Condition With Nursing staff, patient and Dr. Staley The exam, history, and the medical decision-making described in the above note were completed with the assistance of the mid-level provider. I reviewed and agree with the findings presented. I attest that I had a [id number] encounter with the patient on the same day, and personally performed and documented my assessment and findings in the medical record. pt somnolent, wakes for exam. denies pain or SOB. transfer to main hospital for encephalopathy, camryn, may benefit from SNF placement. Ramona Vaughan Jan 21, 2017 09:29 Jose Manuel Staley MD Jan 21, 2017 21:34
[2017-01-21] MEDS: RESP: ALBUTEROL 2.5 MG/IPRATROPIUM 0.5 MG NEB (SCH) NEB ×3 (09:32→15:22)
[2017-01-21] MEDS ORDERED: cloNIDine HCL 0.1 MG TAB PO PRN (09:45)
[2017-01-21] MEDS ORDERED: ALBUTEROL SULFATE 90 MCG/ACT HFA 8 GM INHALER INH PRN (09:45)
[2017-01-21] MEDS ORDERED: AZITHROMYCIN 250 MG TAB PO SCH (10:00)
[2017-01-21 10:27] LABS: ALKALINE PHOSPHATASE 64 U/L (45-117); ALT (GPT) 14 U/L (10-53); ANION GAP 8 MEQ/L (5-15); AST (GOT) 13 U/L (15-37); BICARBONATE 23.1 MEQ/L (21.0-32.0); BLOOD UREA NITROGEN 57 MG/DL (7-18); CHLORIDE 110 MEQ/L (98-107); FREE T4 1.43 NG/DL (0.76-1.46); GLOMERULAR FILTRATION RATE 31 ML/MIN (>89); HDL CHOLESTEROL 38.2 MG/DL (40.0-60.0); LDL CHOLESTEROL 45 MG/DL (0-99); POTASSIUM 5.1 MEQ/L (3.5-5.1); SODIUM (NA) 141 MEQ/L (136-145); TOTAL BILIRUBIN ADULT 0.9 MG/DL (0.2-1.0)
[2017-01-21] MEDS ORDERED: ALBUTEROL SULFATE 90 MCG/ACT HFA 18 GM INHALER INH PRN (10:45)
[2017-01-21] MEDS ORDERED: PILL SPLITTER OTHER PRN (11:00)
[2017-01-21] MEDS: cefTRIAXone INJ 1,000 MG in SODIUM CHLORIDE 0.9% INJ 100 ML IV SCH ×2 (11:00→12:48)
[2017-01-21] MEDS ORDERED: PRAVASTATIN SOD 20 MG TAB PO SCH (11:00)
--- NOTE | 2017-01-21 11:11 | HHI.HP ---
Provisional Diagnosis Admission Date Jan 20, 2017 at 22:30 [place]. Delirium due to underlying medical condition, dementia with behavioral disturbances [place] II. Deferred [place]. Hypothyroidism, COPD, chronic pain Certification of Person's Competence To Provide Express and Informed Consent I have personally examined Ashley Pak , a person being served at [facility] on, Jan 21, 2017 10:54. Express and informed consent means consent voluntarily given in writing, by a competent person, after sufficient explanation and disclosure of the subject matter involved to enable the person to make a knowing and willful decision without any element of force, fraud, deceit, duress, or other form of constraint or coercion. This person is 18 years of age or older, is not now known to be incompetent to consent to treatment with a guardian advocate, and does not have a health care surrogate or proxy currently making medical treatment decisions. I have found this person to be one of the following: [] Competent to provide express and informed consent, as defined above, for voluntary admission to this facility and is competent to provide express and informed consent for treatment. He/she has the consistent capacity to make well reasoned, willful, and knowing decisions concerning his or her medical or mental health treatment. The person fully and consistently understands the purpose of the admission for examination/placement and is fully capable of personally exercising all rights assured under [place] [X] Incompetent to provide express and informed consent to voluntary admission, and this is incompetent to provide express and informed consent to treatment. The person must be transferred to involuntary status and a petition for a guardian advocate filed with the Circuit Court. [] Refusing to provide express and informed consent to voluntary admission but is competent to provide express and informed consent for treatment. The person must be discharged or transferred to involuntary status. Form shall be completed within 24 hours of a person's arrival at the receiving facility and filed in the clinical record of each person: 1. Admitted on a voluntary basis 2. Permitted to provide express and informed consent to his/her own treatment 3. Allowed to transfer from involuntary to voluntary status 4. Prior to permitting a person to consent to his or her own treatment after having been previously found incompetent to consent to treatment. History of Present Illness Capacity: Lacks Capacity HPI The patient is a 81-year-old woman, domiciled with family members, she is , with psychiatric of history of dementia, no previous psychiatric hospitalizations, no previous psych attempts, no psychotropics, medical history of hypothyroidism, HTN, HLD, COPD on home O2, CAD, CHF, presents under Hammonds act by [employer] [employer] for agitation. The Hammonds Act states "Ashley resides with her son, [id number], and grandchildren. [id number]-[id number]-[id number] stated that she woke up angry. Became combative with family. Ashely fell in her driveway and refused to get up. Ashley refused any and all medical attention. She is on oxygen and has been without it for approximately one hour and thirty minutes. Ashley suffers from dementia and Alzheimer's and takes medication for it. Ashley is unable to determine if she needs care." She was initially assessed in the ER and recommended psychiatric admission in psychiatry with medical follow-up. In initial evaluation in the ER she was found with Acute metabolic encephalopathy: Likely multifactorial with underlying dementia compounded with infection, pneumonia. Head CT images reviewed, unremarkable. Tomy was hold with concerns of a reaction. Diagnosed with Community- acquired pneumonia: CXR showed diffuse patchiness in both lungs consistent with moderate pulmonary edema versus pneumonia. Hyperkalemia: K 5.9. On psychiatric evaluation today the patient is found sleeping in her bed, easily arousable, but poorly cooperative, very poor historian. Patient says that she is upset "because you wake me up". But she reports good mood, denies depression , she does not know the reason she is in the hospital. She actually doesn't know that she is in the hospital, she thinks that she is at home, she doesn't know the date. She denies suicidal and homicidal ideation, she denies visual and auditory hallucinations. She denies pain or distress at this moment. Since the patient has being in the psychiatric gallo no agitation, no aggressive behavior, no hostility has been described or reported. Collateral information from her daughter Yola Morales were obtained. She clarifies the patient has dementia, she has periodic episodes of hostility and agitation. Patient has been in methadone and 10 mg 3 times per day for a long time for pain. Daughter is concerned if methadone withdrawal could be causing agitation. Daughter doesn 't have any safety concern at this moment, her major concern is medical. She clarifies the patient doesn't have any previous psychiatric history, no previous psychiatric history of depression, psychosis, incarcerations, abuse, barbara, suicidal attempts. She clarifies the patient doesn't have any history of drugs or alcohol abuse. Patient's about 3 months ago. Since then patient has been also sad on and off, with episodes of cry spells. Review of Systems Endocrine: DENIES: Abnorml menstrual pattern, Heat/cold intolerance, Polydipsia , Polyuria, Polyphagia Eyes: DENIES: Blurred vision, Diplopia, Eye inflammation, Eye pain, Vision loss , Photosensitivity, Double Vision Respiratory: DENIES: Apneas, Cough, Snoring, Wheezing, Hemoptysis, Sputum production, Shortness of breath Cardiovascular: DENIES: Chest pain, Palpitations, Syncope, Dyspnea on Exertion , PND, Lower Extremity Edema, Orthopnea, Claudication Gastrointestinal: DENIES: Abdominal pain, Black stools, Bloody stools, Constipation, Diarrhea, Nausea, Vomiting, Difficulty Swallowing, Anorexia Musculoskeletal: DENIES: Joint pain, Muscle aches, Stiffness, Joint Swelling, Back pain, Neck pain Integumentary: DENIES: Abnormal pigmentation, Pruritus, Rash, Nail changes, Breast masses, Breast skin changes, Nipple discharge Hematologic/lymphatic: DENIES: Bruising, Lymphadenopathy Immunologic/allergic: DENIES: Eczema, Urticaria Neurologic: DENIES: Abnormal gait, Headache, Localized weakness, Paresthesias, Seizures, Speech Problems, Tremor, Poor Balance Psychiatric: DENIES: Anxiety, Confusion, Mood changes, Depression, Hallucinations, Agitation, Suicidal Ideation, Homicidal Ideation, Delusions Past Psych History Violence risk - others (6 mos) Increased due to delirium Substance Abuse History Drugs/Alcohol past 12 months No history of alcohol or drug use Past Family Social History Coded Allergies: Aspirin (Verified Allergy, Severe, Rash, 01/20/17) Penicillin (Verified Allergy, Severe, Rash, 01/20/17) Sulfa (Verified Adverse Reaction, Severe, Nausea/Vomiting, 01/20/17) Reported Medications Potassium Chloride ER (Klor-Con 10)10 Meq Tab10 Meq PO DAILY Ref 0 01/20/17 Furosemide 20 Mg Tab20 Mg PO DAILY Ref 0 01/20/17 Docusate Sodium (Dulcolax Stool Softener)100 Mg Fvh079 Mg PO BID Ref 0 01/20/17 Levothyroxine (Synthroid)175 Mcg Stb716 Mcg PO DAILY Ref 0 01/20/17 Tiotropium Inh (Spiriva Handihaler)18 Mcg Cap18 Mcg INH DAILY Ref 0 1 capsule = 18 mcg 01/20/17 Simvastatin 10 Mg Tab10 Mg PO DAILY Ref 0 01/20/17 Albuterol 8.5 GM Inh (Proair Hfa 8.5 GM Inh)90 Mcg/Act Aer1 Puff INH Q4H PRN ( SHORTNESS OF BREATH) Ref 0 108 mcg/actuation 01/20/17 Nitroglycerin SL (Nitrostat SL)0.4 Mg Subl0.4 Mg SL DIRECTED PRN (CHEST PAIN ) Ref 0 1 tablet under the tongue as needed for chest pain. Repeat every 5 minutes for a total of 3 DOSES or call 911 if NO relief. 01/20/17 Methadone 10 Mg Tab10 Mg PO Q6HR PRN (PAIN SCALE 1 TO 10) Ref 0 01/20/17 Olmesartan (Benicar)40 Mg Tab40 Mg PO DAILY Ref 0 01/20/17 Current Medications Medications (Trade) Dose Ordered Sig/May Route Start Time Stop Time Status Last Admin (Ativan) 0.5 mg Q12H PRN PO 01/20/17 23:00 (Ativan Inj) 0.5 mg Q12H PRN IM 01/20/17 23:00 01/20/17 23:00 (Tylenol) 650 mg Q4H PRN PO 01/20/17 23:00 01/21/17 00:04 (Milk Of Magnesia Liq) 30 ml DAILY PRN PO 01/20/17 23:00 Al Hydrox/Mg Hydrox/ Simethicone 30 ml 30 ml Q6H PRN PO 01/20/17 23:00 (Rocephin Inj/NS Inj) 100 ml @ 200 mls/hr Q24H IV 01/21/17 11:00 (Zithromax) 250 mg Q24H PO 01/21/17 10:00 (Colace) 100 mg BID PO 01/21/17 21:00 (Spiriva Inh) 18 mcg DAILY INH 01/21/17 12:00 (Synthroid) 100 mcg DAILY@06 PO 01/22/17 06:00 (Pravachol) 20 mg DAILY PO 01/21/17 11:00 (Catapres) 0.1 mg Q6H PRN PO 01/21/17 09:45 (Synthroid) 75 mcg DAILY@06 PO 01/22/17 06:00 (Ventolin Hfa Inh) 1 puff Q4HR PRN INH 01/21/17 10:45 Social History Patient lives with her son but she is , retired Physical Exam On physical examination patient is markedly psychomotor retarded, hypoactive, but no tremors, no EPS, no skin lesions, present Vital Signs Vital Signs Date Time Temp Pulse Resp B/P Pulse Ox O2 Delivery O2 Flow Rate FiO2 01/21/17 09:22 21 01/21/17 05:46 97.5 81 16 133/63 91 Lab Results CBC wnl, BMP with K5.8 (hemolyzed sample), creatinine 1.86. Urinalysis negative. Neuro checks. Consult PT/OT/ST. Avoid sedating medications/Benzos. Potassium is 5.9 Mental Status Examination Appearance Elderly woman, good hygiene, [facility], age appearing, irritable, poorly cooperative Speech: Hesitant Orientation: Person Memory: Impaired (describe) Thought Process: Thought Blocking Thought Content: Unremarkable Hallucination Type: None Suicidal Ideation: No Previous Suicide Attempts: No Homicidal Ideation: No Previous Homicide Attempts: No Judgment: Impulsive, Poor Affect: Irritable Mood: Angry, Oppositional Motor Activity: Normal gait Assessment & Plan Problem List: (1) Delirium due to another medical condition Assessment & Plan: The patient is a 81-year-old woman, domiciled with family members, she is , with psychiatric of history of dementia, no previous psychiatric hospitalizations, no previous psych attempts, no psychotropics, medical history of hypothyroidism, HTN, HLD, COPD on home O2, CAD , CHF, presents under Hammonds act by [employer] [employer] for agitation. The Hammonds Act states "Ashley resides with her son, aentalnb-ju-kub, and grandchildren. [id number]-qi-ymo stated that she woke up angry. Became combative with family. Ashley fell in her driveway and refused to get up. Ashley refused any and all medical attention. She is on oxygen and has been without it for approximately one hour and thirty minutes. Ashley suffers from dementia and Alzheimer's and takes medication for it. Ashley is unable to determine if she needs care." On psychiatric evaluation today the patient is poorly cooperative, oppositional, irritable. However, patient denies depressive symptoms, denies anxiety, denies stress, denies suicidal or homicidal ideation, denies visual and auditory hallucinations. Patient seems to be confused, with on and off level of consciousness, inattention, disoriented in time and place. Patient allegedly has history of agitation and aggressive behavior at home. Collateral information from her daughter affirms the patient doesn't have any previous psychiatric history of the that dementia, a baseline patient is irritable, grumpy but not usually aggressive or hostile. My impression is the patient has delirium superimposed to dementia due to underlying medical decompensation. Pneumonia, electrolyte imbalance could be the cause of metabolic encephalopathy/agitation, aggressive behavior at home. At this moment the patient does not meet criteria for psychiatric admission. Patient should be transferred to medical floor to continue her medical treatment. I will continue the follow-up in medical floor. I will start Seroquel 12.5 mg twice a day to help with behavior. ICD Code: F05 Assessment & Plan Estimated LOS: days Freeman Teixeira MD Jan 21, 2017 11:11
[2017-01-21] MEDS ORDERED: TIOTROPIUM BROMIDE 18 MCG INH INH SCH (12:00)
[2017-01-21] MEDS ORDERED: QUEtiapine FUMARATE 25 MG TAB PO SCH (12:00)
[2017-01-21 17:02] LABS: HEMOGLOBIN A1b 0.8 %; HEMOGLOBIN Ao 85.1 %; HEMOGLOBIN F 1.1 %; HEMOGLOBIN LA1C 2.1 %; HEMOGLOBIN P3 5.5 %
[2017-01-21] MEDS ORDERED: DOCUSATE SODIUM 100 MG CAP PO SCH (21:00)
[2017-01-22] MEDS ORDERED: LEVOTHYROXINE SODIUM 75 MCG TAB PO SCH (06:00)
[2017-01-22] MEDS ORDERED: LEVOTHYROXINE SODIUM 100 MCG TAB PO SCH (06:00)
== END 2017-01-21 15:30 | disposition short-term general hospital (02) | DRG 70 ==
LOC: H4EA 22:30
PROVIDERS: ADMIT Psychiatry & Neurology Psychiatry; ATTEND Psychiatry & Neurology Psychiatry
DX: G93.41 Metabolic encephalopathy (principal); J18.9 Pneumonia, unspecified organism; N17.9 Acute kidney failure, unspecified; I11.0 Hypertensive heart disease with heart failure; J96.10 Chronic respiratory failure, unspecified whether with hypoxia or hypercapnia; J44.0 Chronic obstructive pulmonary disease with (acute) lower respiratory infection; I50.30 Unspecified diastolic (congestive) heart failure; F05 Delirium due to known physiological condition; F02.81 Dementia in other diseases classified elsewhere, unspecified severity, with behavioral disturbance; G30.9 Alzheimer's disease, unspecified; Z99.81 Dependence on supplemental oxygen; E87.5 Hyperkalemia; E03.9 Hypothyroidism, unspecified; E78.5 Hyperlipidemia, unspecified; I25.10 Atherosclerotic heart disease of native coronary artery without angina pectoris
CPT/HCPCS: 80053; 80061; 83036; 83880; 84439; 84443; 94640; 94664; J0696; J2060

== ENCOUNTER 2017-01-21 15:55 | Inpatient (IN) | payer MEDICARE ==
[2017-01-21 16:34] VITALS: BP 117/62; PULSE 106; RESP 19; TEMP 97.3; O2SAT 90
[2017-01-21] MEDS ORDERED: SODIUM CHLORIDE 0.9% FLUSH 10 ML FLUSH IV FLUSH PRN (17:30)
[2017-01-21] MEDS ORDERED: NALOXONE HCL 0.4 MG/ML AMP IV PRN (17:30)
[2017-01-21] MEDS ORDERED: cloNIDine HCL 0.1 MG TAB PO PRN (17:45)
[2017-01-21] MEDS ORDERED: RESP: ALBUTEROL 2.5 MG/IPRATROPIUM 0.5 MG NEB (PRN) NEB (17:45)
--- NOTE | 2017-01-21 17:53 | HHI.HP ---
[facility] Unknown Admission Diagnosis Diagnoses: Travel History International Travel<30 Days: No Contact w/Intl Traveler <30 Da: No Traveled to Known Affected Are: No History of Present Illness 81-year-old female with history of dementia, hypothyroidism, HTN, HLD, COPD on home O2, CAD, possible CHF, presents under Hammonds act by [place] [employer] for agitation. The Hammonds Act states "Ashley resides with her son, iwnvdqyq-[id number]-xae, and grandchildren. [id number]-[id number] stated that she woke up angry. Became combative with family. Ashley fell in her driveway and refused to get up. Ashley refused any and all medical attention. She is on oxygen and has been without it for approximately one hour and thirty minutes. Ashley suffers from dementia and Alzheimer's and takes medication for it. Ashley is unable to determine if she needs care." Currently the patient is in the med/psych unit. She is awake but will not open her eyes. She will not follow commands. She shakes her head no when asked if she has any f/c, n/v, shortness of breath, chest pain or abdominal pain. Patient is a poor historian and I am unable to obtain any reliable information from the patient therefore history collected from review of the medical records. Review of Systems Attempted 10 point review of systems the patient not participatory secondary to cognitive impairment Past Family Social History Past Medical History Dementia Hypothyroidism HTN HLD COPD on home O2 CAD possible CHF Past Surgical History Patient denies any previous surgical procedures but due to patients current mental status validity of response is questioned Reported Medications Reported Medications Klor-Con 10 (Potassium Chloride) 10 Meq Tab 10 Meq PO DAILY Furosemide 20 Mg Tab 20 Mg PO DAILY Dulcolax Stool Softener (Docusate Sodium) 100 Mg Cap 100 Mg PO BID Synthroid (Levothyroxine Sodium) 175 Mcg Tab 175 Mcg PO DAILY Spiriva Handihaler (Tiotropium Inh) 18 Mcg Cap 18 Mcg INH DAILY 1 capsule = 18 mcg Simvastatin 10 Mg Tab 10 Mg PO DAILY Proair Hfa 8.5 GM Inh (Albuterol Sulfate) 90 Mcg/Act Aer 1 Puff INH Q4H PRN 108 mcg/actuation Nitrostat SL (Nitroglycerin) 0.4 Mg Subl 0.4 Mg SL DIRECTED PRN 1 tablet under the tongue as needed for chest pain. Repeat every 5 minutes for a total of 3 DOSES or call 911 if NO relief. Methadone (Methadone HCl) 10 Mg Tab 10 Mg PO Q6HR PRN Benicar (Olmesartan) 40 Mg Tab 40 Mg PO DAILY Allergies: Coded Allergies: Aspirin (Verified Allergy, Severe, Rash, 01/20/17) Penicillin (Verified Allergy, Severe, Rash, 01/20/17) Sulfa (Verified Adverse Reaction, Severe, Nausea/Vomiting, 01/20/17) Family History Unable to obtain due to patient's cognitive impairment Social History Unable to obtain due to patient's cognitive impairment Physical Exam Vital Signs Vital Signs Date Time Temp Pulse Resp B/P Pulse Ox O2 Delivery O2 Flow Rate FiO2 01/21/17 16:34 97.3 106 19 117/62 90 Physical Exam GENERAL: Elderly female patient in NAD. Awake, not oriented, will not open her eyes. Will not follow commands. SKIN: Warm and dry. No rash. HEAD: Normocephalic. Atraumatic. EYES: Patient will not open her eyes. ENT: No nasal bleeding or discharge. NECK: Supple. Trachea midline. CARDIOVASCULAR: Regular rate and rhythm. S1, S2 noted. No murmur appreciated. RESPIRATORY: No accessory muscle use. Clear to auscultation but poor effort. Breath sounds equal bilaterally. GASTROINTESTINAL: Abdomen soft, non-tender, nondistended. Normoactive bowel sounds x4. MUSCULOSKELETAL: No obvious deformities. Extremities without clubbing, cyanosis , or edema. NEUROLOGICAL: Awake. Will not follow commands. PSYCHIATRIC: Insight and judgment poor. Assessment and Plan Assessment and Plan 81-year-old female with history of dementia admitted under Hammonds act by [place] [employer] for increased agitation. Hospitalist service consulted for medical management of hypothyroidism, HTN, HLD, COPD on home O2, CAD, possible CHF and CAP. //Dementia with increased agitation admitted under Hammonds Act -psychiatry feels presentation is due to medical issues and has discharged the pt to medical floor. s/o 3 weeks ago per notes, so could be case of elderly adjustment disorder. -plan consult psychiatry tomorrow. //Acute metabolic encephalopathy - Likely multifactorial with underlying dementia compounded with infection, pneumonia. - Head CT images reviewed and are unremarkable for acute process. - CBC wnl, Urinalysis negative - Consult PT/OT - Avoid sedating medications/Benzos. //Hyperkalemia - Initial potassium 5.8, repeat level yesterday 6.3- possible hemolyzed sample. - Follow up on today's lab results which are ordered for this morning but have not yet been drawn. Order for nursing staff placed to please draw labs. - Kayexalate 30 g by mouth once- not received - subsequent improvement without treatment . cont to monitor //CAMRYN - Creatinine 1.86, unknown baseline - Possibly prerenal, due to poor oral intake and dehydration - Avoid nephrotoxic agents - Gentle IV fluid hydration - A.m. labs1.6. cont hydration. //Suspected community acquired pneumonia versus possible CHF - Chest x-ray at admission shows diffuse patchiness within both lungs consistent with moderate pulmonary edema versus pneumonia - IV ceftriaxone and by mouth azithromycin //possible Diastolic CHF - BNP 200s - Echocardiogram completed revealing ef 50-55%, no RWMA, Moderate elevation in pulm pressures, possibly due to PNA. - monitor for s/sxs of fluid overload - hold home Lasix dose for now //Chronic respiratory failure on home O2 secondary to COPD - Unclear how many liters of oxygen she uses at home - Continue O2 via NC. - Continue patient's Spiriva - Duonebs //HTN - BP 133/63 - hold Benicar due to hyperkalemia and CAMRYN - monitor BP - clonidine prn with parameters //Hypothyroidism, chronic -TSH low. - continue patient's Synthroid - decr dose of synthroid. recheck in 2 mos. //HLD: chronic - continue patient's simvastatin //Methadone Use - verified on E-forcse, patient last filled Methadone 10mg q6h #120tabs on by Dr. Lane Jack in [place], [place], and previously prescribed by Dr. Rufino Kirby in [place]. - Will hold methadone for now as patient is encephalopathic as above. Consider restarting if patient becomes more alert. DVT Prophylaxis: TEDs/SCDs Discussed Condition With note completed as a shared encounter with Ramona Vaughan. Physician Certification 2 Midnight Certification Type: Admission for Inpatient Services Order for Inpatient Services The services are ordered in accordance with Medicare regulations or non- Medicare payer requirements, as applicable. In the case of services not specified as inpatient-only, they are appropriately provided as inpatient services in accordance with the 2-midnight benchmark. Estimated LOS (days): 2 days is the estimated time the patient will need to remain in the hospital, assuming treatment plan goals are met and no additional complications. Post-Hospital Plan: Not yet determined Jose Manuel Staley MD Jan 21, 2017 17:53
[2017-01-21] MEDS ORDERED: AZITHROMYCIN 250 MG TAB PO ONE (18:00)
[2017-01-21] MEDS: HEPARIN SODIUM - SQ 10,000 UNITS/ML VIAL SQ SCH (18:25)
[2017-01-21] MEDS: cefTRIAXone INJ 1,000 MG in SODIUM CHLORIDE 0.9% INJ 100 ML IV SCH (19:52)
[2017-01-21] MEDS: SODIUM CHLOR 0.9% 1000 ML INJ 1,000 ML IV SCH (19:52)
[2017-01-21 20:00] VITALS: BP 105/67; PULSE 87; RESP 18; TEMP 98.2; O2SAT 96
[2017-01-21] MEDS: TIOTROPIUM BROMIDE 18 MCG INH INH SCH (20:00)
[2017-01-21] MEDS: SODIUM CHLORIDE 0.9% FLUSH 10 ML FLUSH IV FLUSH SCH (21:00)
[2017-01-22] VITALS: BP 120/69; PULSE 73; RESP 18; TEMP 96.9; O2SAT 99
[2017-01-22 04:00] VITALS: BP 122/57; PULSE 67; RESP 20; TEMP 96.6; O2SAT 97
[2017-01-22] MEDS: SODIUM CHLOR 0.9% 1000 ML INJ 1,000 ML IV SCH ×2 (04:00→14:26)
[2017-01-22] MEDS: HEPARIN SODIUM - SQ 10,000 UNITS/ML VIAL SQ SCH ×2 (05:50→17:13)
[2017-01-22] MEDS: LEVOTHYROXINE SODIUM 100 MCG TAB PO SCH (05:51)
[2017-01-22 08:00] VITALS: BP 112/58; PULSE 71; RESP 20; TEMP 98; O2SAT 97
[2017-01-22 08:07] LABS: AUTOMATED NEUTROPHIL # 2.7 TH/MM3 (1.8-7.7); BASOPHIL % 0.6 % (0.0-2.0); EOSINOPHIL # 0.5 TH/MM3 (0-0.4); EOSINOPHIL % 7.3 % (0.0-4.0); HEMATOCRIT 31.2 % (35.0-46.0); LYMPH % 43.2 % (9.0-44.0); LYMPHOCYTE # 2.7 TH/MM3 (1.0-4.8); MEAN CELL VOLUME 93.5 FL (80.0-100.0); MEAN CORPUSCULAR HEMOGLOBIN 30.9 PG (27.0-34.0); MONO % 6.8 % (0.0-8.0); NEUT % 42.1 % (16.0-70.0); PLATELET COUNT 91 TH/MM3 (150-450); RED BLOOD COUNT 3.34 MIL/MM3 (4.00-5.30); RED CELL DISTRIBUTION WIDTH 13.2 % (11.6-17.2); WHITE BLOOD COUNT 6.3 TH/MM3 (4.0-11.0)
[2017-01-22 08:16] LABS: HEMO FLAGS AUTO DIFF
[2017-01-22 08:31] LABS: ALKALINE PHOSPHATASE 57 U/L (45-117); ALT (GPT) 12 U/L (10-53); ANION GAP 6 MEQ/L (5-15); AST (GOT) 17 U/L (15-37); BICARBONATE 24.8 MEQ/L (21.0-32.0); BLOOD UREA NITROGEN 48 MG/DL (7-18); CHLORIDE 112 MEQ/L (98-107); GLOMERULAR FILTRATION RATE 35 ML/MIN (>89); POTASSIUM 5.4 MEQ/L (3.5-5.1); SODIUM (NA) 143 MEQ/L (136-145); TOTAL BILIRUBIN ADULT 0.6 MG/DL (0.2-1.0)
[2017-01-22 08:54] LABS: PLATELET ESTIMATE SMEAR LOW (NORMAL); PLATELET MORPHOLOGY NORMAL (NORMAL); SCAN/DIFF AUTO DIFF CONFIRMED
[2017-01-22] MEDS: SODIUM CHLORIDE 0.9% FLUSH 10 ML FLUSH IV FLUSH SCH ×2 (10:16→20:52)
[2017-01-22] MEDS: TIOTROPIUM BROMIDE 18 MCG INH INH SCH (10:16)
[2017-01-22 12:25] VITALS: BP 136/63; PULSE 82; RESP 20; TEMP 97.5; O2SAT 97
--- NOTE | 2017-01-22 16:29 | HHI.PR ---
Subjective Remarks Follow-up for altered mental status. The patient is currently disoriented to time, states she normally would know the month and the year, still feels confused. Denies noticing any prior forgetfulness. She does note that she is in the hospital. She feels well at this time. She denies any cough, chest pain , shortness breath, fevers, diarrhea, dysuria. She states he has noticed some chills. She states that she lives at home alone. She states her daughter occasionally comes to check in on her and arrange her medications. She is not sure what medication she is on at home. Patient states she is able to ambulate , per sitter the patient worked with PT today, patient does not recall this. Objective Vitals Vital Signs Date Time Temp Pulse Resp B/P Pulse Ox O2 Delivery O2 Flow Rate FiO2 01/22/17 12:25 97.5 82 20 136/63 97 01/22/17 08:00 98.0 71 20 112/58 97 01/22/17 04:00 96.6 67 20 122/57 97 01/22/17 00:00 96.9 73 18 120/69 99 01/21/17 20:00 98.2 87 18 105/67 96 01/21/17 16:34 97.3 106 19 117/62 90 I/O 01/21/17 01/21/17 01/21/17 01/22/17 01/22/17 01/22/17 07:00 15:00 23:00 07:00 15:00 23:00 Intake Total 1200 ml 793 ml Balance 1200 ml 793 ml Intake Oral 120 ml IV Total 1200 ml 673 ml # Voids 1 3 4 Result Diagram: 01/22/1717 01/22/17716 Objective Remarks GENERAL: Well-developed well-nourished. In no acute distress. Oriented 2. SKIN: Warm and dry. No lesions noted. HEENT: Normocephalic. Pupils equal and round. Mucous membranes pink and moist. CARDIOVASCULAR: Regular rate and rhythm. No murmur appreciated. RESPIRATORY: No accessory muscle use. Clear to auscultation. Breath sounds equal bilaterally. GASTROINTESTINAL: Abdomen soft, non-tender, nondistended. Bowel sounds x4. MUSCULOSKELETAL: No obvious deformities. No clubbing or cyanosis. Trace edema. NEUROLOGICAL: Awake and alert. No focal neurological deficits. Moves upper and lower extremities spontaneously. Normal speech. PSYCHIATRIC: Appropriate mood and affect; insight and judgment limited. A/P Assessment and Plan 81-year-old female with history of dementia admitted under Hammonds act by [facility] for increased agitation. Hospitalist service consulted for medical management of hypothyroidism, HTN, HLD, COPD on home O2, CAD, possible CHF and CAP. //Dementia with increased agitation admitted under Hammonds Act -psychiatry feels presentation is due to medical issues and has discharged the pt to medical floor. -Reconsult psychiatry for follow-up. //Acute metabolic encephalopathy - suspect multifactorial due to possible acute infection on top of possible underlying dementia - Head CT 01/20 reviewed and are unremarkable for acute process. - CBC wnl, Urinalysis negative - Consulted PT/OT - Avoid sedating medications/Benzos. //Hyperkalemia - Potassium with persistent mild elevation, currently 5.4 - Give Kayexalate 1 - Follow-up labs in a.m. - Continue to hold Benicar //CAMRYN - Creatinine 1.86, unknown baseline, no previous labs for comparison - Possibly prerenal, due to poor oral intake and dehydration - Avoid nephrotoxic agents - Creatinine improved 1.45 with IVF - Appears euvolemic, we'll DC IVF //Suspected community acquired pneumonia versus possible CHF - Chest x-ray at admission shows diffuse patchiness within both lungs consistent with moderate pulmonary edema vs pneumonia - IV ceftriaxone and by mouth azithromycin //possible Diastolic CHF - BNP 200s - Echocardiogram completed revealing ef 50-55%, no RWMA, Moderate elevation in pulm pressures, possibly due to PNA. - monitor for s/sxs of fluid overload - hold home Lasix dose for now - DC IVF //Chronic respiratory failure on home O2 secondary to COPD - Unclear how many liters of oxygen she uses at home - Continue O2 via NC. - Continue patient's Spiriva - Duonebs //HTN - BP 133/63 - hold Benicar due to hyperkalemia and CAMRYN - monitor BP - clonidine prn with parameters //Hypothyroidism, chronic -TSH low. - decreased home dose of synthroid. recheck in 2 mos. //HLD: chronic - continue patient's simvastatin //Methadone Use - verified on E-forcse, patient last filled Methadone 10mg q6h #120tabs on by Dr. Lane Jack in [place], [place], and previously prescribed by Dr. Rufino Kirby in [place]. - Will hold methadone for now as patient is encephalopathic as above. Consider restarting if patient becomes more alert. DVT Prophylaxis: TEDs/SCDs Written by Bernardo Garrido, acting as scribe for Dr. Streeter on 01/22/17 at 16:19. Discharge Planning The patient may need long-term care if disorientation proves to be persistent. Case management consulted. Bernardo Garriod Jan 22, 2017 16:29
[2017-01-22] MEDS ORDERED: SODIUM POLYSTYRENE SULFONATE SUSP 15 GM/60 ML CUP PO ONE (16:30)
[2017-01-22 16:41] VITALS: BP 127/62; PULSE 99; RESP 20; TEMP 98.1; O2SAT 94
[2017-01-22] MEDS: cefTRIAXone INJ 1,000 MG in SODIUM CHLORIDE 0.9% INJ 100 ML IV SCH (17:09)
[2017-01-22] MEDS: AZITHROMYCIN 250 MG TAB PO SCH (17:12)
[2017-01-22 21:20] VITALS: BP 118/82; PULSE 78; RESP 16; TEMP 97.8; O2SAT 96
[2017-01-23 00:19] VITALS: BP 121/61; PULSE 66; RESP 16; TEMP 98.6; O2SAT 97
[2017-01-23 04:05] VITALS: BP 151/68; PULSE 69; RESP 18; TEMP 97.9; O2SAT 96
[2017-01-23] MEDS: LEVOTHYROXINE SODIUM 100 MCG TAB PO SCH (05:14)
[2017-01-23] MEDS: HEPARIN SODIUM - SQ 10,000 UNITS/ML VIAL SQ SCH ×2 (05:14→17:48)
[2017-01-23 08:00] VITALS: BP 169/67; PULSE 70; RESP 18; TEMP 97.3; O2SAT 92
[2017-01-23] MEDS: SODIUM CHLORIDE 0.9% FLUSH 10 ML FLUSH IV FLUSH SCH ×2 (09:00→20:00)
[2017-01-23] MEDS: TIOTROPIUM BROMIDE 18 MCG INH INH SCH (09:00)
[2017-01-23 09:11] LABS: AUTOMATED NEUTROPHIL # 2.4 TH/MM3 (1.8-7.7); BASOPHIL % 0.4 % (0.0-2.0); EOSINOPHIL # 0.5 TH/MM3 (0-0.4); EOSINOPHIL % 7.6 % (0.0-4.0); HEMATOCRIT 30.8 % (35.0-46.0); LYMPH % 45.1 % (9.0-44.0); LYMPHOCYTE # 2.8 TH/MM3 (1.0-4.8); MEAN CELL VOLUME 91.6 FL (80.0-100.0); MEAN CORPUSCULAR HEMOGLOBIN 30.3 PG (27.0-34.0); MEAN CORPUSCULAR HGB CONC 33.1 % (32.0-36.0); MONO % 7.7 % (0.0-8.0); NEUT % 39.2 % (16.0-70.0); PLATELET COUNT 90 TH/MM3 (150-450); RED BLOOD COUNT 3.36 MIL/MM3 (4.00-5.30); WHITE BLOOD COUNT 6.2 TH/MM3 (4.0-11.0)
[2017-01-23 09:15] LABS: HEMO FLAGS AUTO DIFF
[2017-01-23 09:40] LABS: BICARBONATE 25.1 MEQ/L (21.0-32.0)
[2017-01-23 09:59] LABS: OVALOCYTES 1+ (NORMAL); PLATELET ESTIMATE SMEAR LOW (NORMAL); PLATELET MORPHOLOGY NORMAL (NORMAL); SCAN/DIFF AUTO DIFF CONFIRMED
[2017-01-23 12:40] VITALS: BP 148/71; PULSE 73; RESP 18; TEMP 97.1; O2SAT 93
--- NOTE | 2017-01-23 13:57 | HHI.PYPN ---
Subjective Remarks Patient is seen today for psychiatric evaluation, patient is found eating her lunch, calm, cooperative and pleasant, she says that she feels very good, describes her mood as happy, denies depressive symptoms, denies anhedonia, denies hopelessness, denies helplessness, denies worthlessness, denies suicidal and homicidal ideation, denies visual and auditory hallucinations. Patient is disoriented in time, she states that she is on Feb, 2012. She she knows she is is in the hospital, she doesn't know the name or the location. Patient expresses her motivation to continue medical recommendations and follow-up. No neuropsychiatric symptoms of dementia, such as agitation, aggressive behavior, paranoia, internal preoccupation are observed or reported at this moment. Review of Systems Constitutional: DENIES: Diaphoretic episodes, Fatigue, Fever, Weight gain, Weight loss, Chills, Dizziness, Change in appetite, Night Sweats Endocrine: DENIES: Abnorml menstrual pattern, Heat/cold intolerance, Polydipsia , Polyuria, Polyphagia Ears, nose, mouth, throat: DENIES: Tinnitus, Hearing loss, Vertigo, Nasal discharge, Oral lesions, Throat pain, Hoarseness, Ear Pain, Running Nose, Epistaxis, Sinus Pain, Toothache, Odynophagia Respiratory: DENIES: Apneas, Cough, Snoring, Wheezing, Hemoptysis, Sputum production, Shortness of breath Cardiovascular: DENIES: Chest pain, Palpitations, Syncope, Dyspnea on Exertion , PND, Lower Extremity Edema, Orthopnea, Claudication Gastrointestinal: DENIES: Abdominal pain, Black stools, Bloody stools, Constipation, Diarrhea, Nausea, Vomiting, Difficulty Swallowing, Anorexia Musculoskeletal: DENIES: Joint pain, Muscle aches, Stiffness, Joint Swelling, Back pain, Neck pain Integumentary: DENIES: Abnormal pigmentation, Pruritus, Rash, Nail changes, Breast masses, Breast skin changes, Nipple discharge Hematologic/lymphatic: DENIES: Bruising, Lymphadenopathy Immunologic/allergic: DENIES: Eczema, Urticaria Neurologic: DENIES: Abnormal gait, Headache, Localized weakness, Paresthesias, Seizures, Speech Problems, Tremor, Poor Balance Objective Alert: Yes Roosevelt: Person, Place (partially) Mood: Calm Affect: Appropriate Memory Intact: Remote Hallucinations: Other (he denies) Delusions: No Delusion Type: Other (no delusions elicited) Suicidal: Ideation (she denies) Homicidal: Ideation (she denies) Insight/Judgment Fair Labs Test 01/23/17 08:33 White Blood Count 6.2 TH/MM3 Red Blood Count 3.36 MIL/MM3 Hemoglobin 10.2 GM/DL Hematocrit 30.8 % Mean Corpuscular Volume 91.6 FL Mean Corpuscular Hemoglobin 30.3 PG Mean Corpuscular Hemoglobin 33.1 % Concent Red Cell Distribution Width 13.0 % Platelet Count 90 TH/MM3 Mean Platelet Volume 8.6 FL Neutrophils (%) (Auto) 39.2 % Lymphocytes (%) (Auto) 45.1 % Monocytes (%) (Auto) 7.7 % Eosinophils (%) (Auto) 7.6 % Basophils (%) (Auto) 0.4 % Neutrophils # (Auto) 2.4 TH/MM3 Lymphocytes # (Auto) 2.8 TH/MM3 Monocytes # (Auto) 0.5 TH/MM3 Eosinophils # (Auto) 0.5 TH/MM3 Basophils # (Auto) 0.0 TH/MM3 CBC Comment AUTO DIFF Differential Comment AUTO DIFF CONFIRMED Platelet Estimate LOW Platelet Morphology Comment NORMAL Ovalocytes 1+ Sodium Level 143 MEQ/L Potassium Level 4.0 MEQ/L Chloride Level 112 MEQ/L Carbon Dioxide Level 25.1 MEQ/L Anion Gap 6 MEQ/L Blood Urea Nitrogen 30 MG/DL Creatinine 1.13 MG/DL Estimat Glomerular Filtration 46 ML/MIN Rate Random Glucose 76 MG/DL Calcium Level 8.9 MG/DL Vitals/IOs Vital Signs Date Time Temp Pulse Resp B/P Pulse Ox O2 Delivery O2 Flow Rate FiO2 01/23/17 12:40 97.1 73 18 148/71 93 01/22/17 20:19 Nasal Cannula 2.00 Intake and Output 01/22/17 01/22/17 01/23/17 08:00 16:00 00:00 Intake Total 1200 ml 793 ml Balance 1200 ml 793 ml Assessment & Plan Problem List: (1) Dementia Assessment & Plan: On the second evaluation there is no evidence of neuropsychiatric symptoms of dementia. Patient might benefit of starting Namenda 5 mg and Aricept 5 mg daily to slower progression of dementia. She doesn't meet criteria for involuntary admission at this moment.. ICD Code: F03.90 Assessment & Plan Estimated LOS: days Justification for Cont. Inpt. Patient does not meet criteria for psychiatric admission at this moment. Problem Qualifiers (1) Dementia: Freeman Teixeira MD Jan 23, 2017 13:57
[2017-01-23 16:00] VITALS: BP 138/63; PULSE 79; RESP 18; TEMP 96.1; O2SAT 94
[2017-01-23] MEDS: cefTRIAXone INJ 1,000 MG in SODIUM CHLORIDE 0.9% INJ 100 ML IV SCH (17:48)
[2017-01-23] MEDS: AZITHROMYCIN 250 MG TAB PO SCH (17:48)
--- NOTE | 2017-01-23 17:56 | HHI.PR ---
Subjective Remarks Follow-up for altered mental status. Reportedly the patient lives at home with her [id number] per nursing report. Reportedly the family is unable to take the patient back due to previous agitation at home. The patient is pleasant today. She denies any cough or shortness of breath. She has no acute complaints this time. Per nursing report at bedside, patient has been eating fair, will eat dessert. Objective Vitals Vital Signs Date Time Temp Pulse Resp B/P Pulse Ox O2 Delivery O2 Flow Rate FiO2 01/23/17 16:00 96.1 79 18 138/63 94 01/23/17 12:40 97.1 73 18 148/71 93 01/23/17 08:00 97.3 70 18 169/67 92 01/23/17 04:05 97.9 69 18 151/68 96 01/23/17 00:19 98.6 66 16 121/61 97 01/22/17 21:20 97.8 78 16 118/82 96 01/22/17 20:19 Nasal Cannula 2.00 I/O 01/22/17 01/22/17 01/22/17 01/23/17 01/23/17 01/23/17 07:00 15:00 23:00 07:00 15:00 23:00 Intake Total 1200 ml 793 ml 360 ml Balance 1200 ml 793 ml 360 ml Intake Oral 120 ml 360 ml IV Total 1200 ml 673 ml # Voids 3 4 2 2 2 # Bowel Movements 0 Result Diagram: 01/23/17 0833 01/23/17 0833 Objective Remarks Patient's daughter from [place] called and patient declines physical examination so she can continue to talk with her daughter on the phone. A/P Assessment and Plan 81-year-old female with history of dementia admitted under Hammonds act by [facility] Department for increased agitation. Hospitalist service consulted for medical management of hypothyroidism, HTN, HLD, COPD on home O2, CAD, possible CHF and CAP. //Dementia with increased agitation admitted under Hammonds Act -psychiatry feels presentation is due to medical issues and has discharged the pt to medical floor. -Appreciate psychiatry recommendations, does not need inpatient psychiatry. //Acute metabolic encephalopathy - suspect multifactorial due to possible acute infection on top of possible underlying dementia - Head CT 01/20 reviewed and are unremarkable for acute process. - CBC wnl, Urinalysis negative - Consulted PT/OT - Avoid sedating medications/Benzos. //Hyperkalemia -Potassium 5.4, given Kayexalate 1, potassium currently 4.0 -Improved on labs today - Continue to hold Benicar //CAMRYN - Creatinine 1.86, unknown baseline, no previous labs for comparison - Possibly prerenal, due to poor oral intake and dehydration - Avoid nephrotoxic agents - Creatinine improved 1.45 with IVF - Appears euvolemic, DC'd IVF, and creatinine improved to 1.13 //Suspected community acquired pneumonia versus possible CHF - Chest x-ray at admission shows diffuse patchiness within both lungs consistent with moderate pulmonary edema vs pneumonia - IV ceftriaxone and by mouth azithromycin //possible Diastolic CHF - BNP 200s - Echocardiogram completed revealing ef 50-55%, no RWMA, Moderate elevation in pulm pressures, possibly due to PNA. - monitor for s/sxs of fluid overload - hold home Lasix dose for now //Chronic respiratory failure on home O2 secondary to COPD - Unclear how many liters of oxygen she uses at home - Continue O2 via NC. - Continue patient's Spiriva - Duonebs //HTN - BP 133/63 - hold Benicar due to hyperkalemia and CAMRYN - monitor BP - clonidine prn with parameters //Hypothyroidism, chronic -TSH low. - decreased home dose of synthroid. recheck in 2 mos. //HLD: chronic - continue patient's simvastatin //Methadone Use verified on E-forcse, patient last filled Methadone 10mg q6h #120tabs on by Dr. Lane Jack in [place], [place], and previously prescribed by Dr. Rufino Kirby in [place]. - Will hold methadone for now as patient is encephalopathic as above. Consider restarting if patient becomes more alert. DVT Prophylaxis: TEDs/SCDs Discussed with Dr. Streeter Discharge Planning Reportedly patient lives with [id number] (Yola Santana ). Reportedly the patient is unable to go back home due to dementia with previous agitation. PT consulted, recommends SNF. Case management consulted. Discharge planning pending safe discharge plan. Bernardo Garrido Jan 23, 2017 17:56
[2017-01-23 20:58] VITALS: BP 147/65; PULSE 82; RESP 17; TEMP 98.7; O2SAT 94
[2017-01-24] VITALS (7 sets, daily range): BP systolic 107–187; BP diastolic 51–98; PULSE 51–71; RESP 16–18; TEMP 97.1–99.2; O2SAT 94–100
[2017-01-24] MEDS: HEPARIN SODIUM - SQ 10,000 UNITS/ML VIAL SQ SCH ×2 (06:00→18:09)
[2017-01-24] MEDS: LEVOTHYROXINE SODIUM 100 MCG TAB PO SCH (06:00)
[2017-01-24] MEDS: TIOTROPIUM BROMIDE 18 MCG INH INH SCH (08:15)
[2017-01-24] MEDS: SODIUM CHLORIDE 0.9% FLUSH 10 ML FLUSH IV FLUSH SCH ×2 (08:16→21:37)
[2017-01-24] MEDS ORDERED: ALBUTEROL SULFATE 90 MCG/ACT HFA 18 GM INHALER INH PRN (11:45)
--- NOTE | 2017-01-24 11:52 | HHI.PR ---
Subjective Remarks Follow-up for altered mental status and possible pneumonia. The patient is doing okay today. She has no acute complaints or concerns. She states that she 's been eating. She doesn't recall when her last bowel movement was. She states that she's been ambulating. She is on home oxygen. She denies any shortness of breath. Discussed with RN, patient has been doing well with no acute issues. Objective Vitals Vital Signs Date Time Temp Pulse Resp B/P Pulse Ox O2 Delivery O2 Flow Rate FiO2 01/24/17 08:00 97.8 51 16 130/62 94 01/24/17 06:14 53 109/55 01/24/17 04:46 99.2 71 17 187/98 96 01/24/17 00:52 97.8 67 17 146/69 95 01/23/17 20:58 98.7 82 17 147/65 94 01/23/17 16:00 96.1 79 18 138/63 94 01/23/17 12:40 97.1 73 18 148/71 93 I/O 01/23/17 01/23/17 01/23/17 01/24/17 01/24/17 01/24/17 07:00 15:00 23:00 07:00 15:00 23:00 Intake Total 360 ml 240 ml Balance 360 ml 240 ml Intake Oral 360 ml 240 ml # Voids 2 2 3 # Bowel Movements 0 Result Diagram: 01/23/1783201/23/17832 Objective Remarks GENERAL: Well-developed well-nourished. In no acute distress. SKIN: Warm and dry. No lesions noted. HEENT: Normocephalic. Pupils equal and round. Mucous membranes pink and moist. CARDIOVASCULAR: Regular rate and rhythm. No murmur appreciated. RESPIRATORY: No accessory muscle use. Clear to auscultation. Breath sounds equal bilaterally. GASTROINTESTINAL: Abdomen soft, non-tender, nondistended. Bowel sounds x4. MUSCULOSKELETAL: No obvious deformities. No clubbing or cyanosis. No edema. NEUROLOGICAL: Awake and alert. No focal neurological deficits. Moves upper and lower extremities spontaneously. Normal speech. PSYCHIATRIC: Pleasantly confused mood and affect; insight and judgment limited. A/P Assessment and Plan 81-year-old female with history of dementia admitted under Hammonds act by [facility] for increased agitation. Hospitalist service consulted for medical management of hypothyroidism, HTN, HLD, COPD on home O2, CAD, possible CHF and CAP. //Dementia with increased agitation admitted under Hammonds Act -psychiatry feels presentation is due to medical issues and has discharged the pt to medical floor. -Appreciate psychiatry recommendations, does not need inpatient psychiatry. -No sitter needed //Acute metabolic encephalopathy - suspect multifactorial due to possible acute infection, underlying dementia, and dehydration - Head CT 01/20 reviewed and are unremarkable for acute process. - CBC wnl, Urinalysis negative - Consulted PT/OT - Avoid sedating medications/Benzos. - Improved //Hyperkalemia - suspect secondary to CAMRYN -Potassium 5.4, given Kayexalate 1, potassium currently 4.0 -Improved, follow-up BMP in the a.m. //CAMRYN - Creatinine 1.86, unknown baseline, no previous labs for comparison - Possibly prerenal, due to poor oral intake and dehydration - Avoid nephrotoxic agents - Creatinine improved 1.45 with IVF - Appears euvolemic, DC'd IVF, and creatinine improved to 1.13 //Suspected community acquired pneumonia versus possible CHF - Chest x-ray at admission shows diffuse patchiness within both lungs consistent with moderate pulmonary edema vs pneumonia - Continue oral azithromycin and change IV ceftriaxone to oral Ceftin //possible Diastolic CHF - BNP 200s - Echocardiogram completed revealing ef 50-55%, no RWMA, Moderate elevation in pulm pressures, possibly due to PNA. - monitor for s/sxs of fluid overload - hold home Lasix dose for now //Chronic respiratory failure on home O2 secondary to COPD - Unclear how many liters of oxygen she uses at home - Continue O2 via NC. - Continue patient's Spiriva - Duonebs //HTN - BP has been labile overnight - Hyperkalemia improved, resume home Benicar - monitor BP - clonidine prn //Hypothyroidism, chronic -TSH low. - decreased home dose of synthroid. recheck in 2 mos. //HLD: chronic - continue patient's simvastatin //Methadone Use verified on E-forcse, patient last filled Methadone 10mg q6h #120tabs on by Dr. Lane Jack in [place], [place], and previously prescribed by Dr. Rufino Kirby in [place]. - Will hold methadone for now as patient is encephalopathic as above. Consider restarting if patient becomes more alert. DVT Prophylaxis: TEDs/SCDs Discharge Planning Reportedly patient lives with [id number] (Yola Santana ). Reportedly the patient is unable to go back home due to dementia with previous agitation. PT consulted, recommends SNF. Case management consulted. Discharge planning pending safe discharge plan. Bernardo Garrido Jan 24, 2017 11:52
[2017-01-24] MEDS: LOSARTAN 50 MG TAB PO SCH (12:00)
[2017-01-24] MEDS: AZITHROMYCIN 250 MG TAB PO SCH (18:09)
[2017-01-24] MEDS: CEFUROXIME AXETIL 500 MG TAB PO SCH (21:36)
[2017-01-24] MEDS ORDERED: HALOPERIDOL LACTATE 5 MG/ML AMP IM ONE (23:30)
[2017-01-25] VITALS: BP 137/62; PULSE 67; RESP 18; TEMP 98.9; O2SAT 98
[2017-01-25 04:00] VITALS: BP 144/58; PULSE 83; RESP 20; TEMP 97.3; O2SAT 96
[2017-01-25] MEDS: HEPARIN SODIUM - SQ 10,000 UNITS/ML VIAL SQ SCH ×2 (06:32→17:32)
[2017-01-25] MEDS: LEVOTHYROXINE SODIUM 100 MCG TAB PO SCH (06:32)
[2017-01-25 07:05] LABS: BICARBONATE 25.3 MEQ/L (21.0-32.0); POTASSIUM 3.8 MEQ/L (3.5-5.1)
[2017-01-25 08:00] VITALS: BP 134/65; PULSE 64; RESP 18; TEMP 97.4; O2SAT 94
[2017-01-25] MEDS: LOSARTAN 50 MG TAB PO SCH (09:50)
[2017-01-25] MEDS: CEFUROXIME AXETIL 500 MG TAB PO SCH ×2 (09:50→20:19)
[2017-01-25] MEDS: SODIUM CHLORIDE 0.9% FLUSH 10 ML FLUSH IV FLUSH SCH ×2 (09:50→20:21)
[2017-01-25] MEDS: PRAVASTATIN SOD 20 MG TAB PO SCH (09:50)
[2017-01-25] MEDS: TIOTROPIUM BROMIDE 18 MCG INH INH SCH (09:51)
--- NOTE | 2017-01-25 10:34 | HHI.PR ---
Subjective Remarks Follow-up for altered mental status. Discussed with RN at bedside. Patient is currently oriented to her birthday, her name, [facility], the month of January, in the year 2016. She denies any acute complaints today. She denies any pain. The patient is agreeable for SNF placement. The patient states that her daughter Yola is who she would want to make decisions for her if she were not able. However she feels like she can make decisions for herself at this time. Objective Vitals Vital Signs Date Time Temp Pulse Resp B/P Pulse Ox O2 Delivery O2 Flow Rate FiO2 01/25/17 08:00 97.4 64 18 134/65 94 01/25/17 04:00 97.3 83 20 144/58 96 01/25/17 00:00 98.9 67 18 137/62 98 01/24/17 20:00 98.2 68 18 126/56 100 01/24/17 16:00 97.1 54 16 118/62 95 01/24/17 12:00 97.1 59 16 107/51 96 I/O 01/24/17 01/24/17 01/24/17 01/25/17 01/25/17 01/25/17 07:00 15:00 23:00 07:00 15:00 23:00 Intake Total 240 ml 240 ml 100 ml 100 ml Balance 240 ml 240 ml 100 ml 100 ml Intake Oral 240 ml 240 ml 100 ml 100 ml # Voids 3 2 1 3 Result Diagram: 01/23/17 0833 01/25/17 0542 Objective Remarks GENERAL: Well-developed well-nourished. In no acute distress. Oriented 3. SKIN: Warm and dry. No lesions noted. HEENT: Normocephalic. Pupils equal and round. Mucous membranes pink and moist. CARDIOVASCULAR: Regular rate and rhythm. No murmur appreciated. RESPIRATORY: No accessory muscle use. Clear to auscultation. Breath sounds equal bilaterally. GASTROINTESTINAL: Abdomen soft, non-tender, nondistended. Bowel sounds x4. MUSCULOSKELETAL: No obvious deformities. No clubbing or cyanosis. No edema. NEUROLOGICAL: Awake and alert. No focal neurological deficits. Moves upper and lower extremities spontaneously. Normal speech. PSYCHIATRIC: Appropriate mood and affect; insight and judgment fair to normal. A/P Assessment and Plan 81-year-old female with history of dementia admitted under Hammonds act by [facility] Department for increased agitation. Hospitalist service consulted for medical management of hypothyroidism, HTN, HLD, COPD on home O2, CAD, possible CHF and CAP. //Dementia with increased agitation admitted under Hammonds Act -psychiatry feels presentation is due to medical issues and has discharged the pt to medical floor. -Appreciate psychiatry recommendations, does not need inpatient psychiatry, Hammonds act lifted. -Was started on Seroquel at night by psychiatry, and per discussion with patient's daughter she would like to continue this as the patient has problems sleeping -Oral Haldol if needed //Acute metabolic encephalopathy - suspect multifactorial due to possible acute infection, underlying dementia, and dehydration - Head CT 01/20 reviewed and are unremarkable for acute process. - CBC wnl, Urinalysis negative - Consulted PT/OT - Avoid sedating medications/Benzos. - Improved, currently oriented 3 //Hyperkalemia - suspect secondary to CAMRYN -Potassium 5.4, given Kayexalate 1, potassium currently 4.0 -Improved, follow-up BMP with potassium 3.8 //CAMRYN - Creatinine 1.86, unknown baseline, no previous labs for comparison - Possibly prerenal, due to poor oral intake and dehydration - Avoid nephrotoxic agents - Creatinine improved 1.45 with IVF - Appears euvolemic, DC'd IVF, and creatinine improved to 1.13 //Suspected community acquired pneumonia vs possible CHF Patient denies any respiratory symptoms throughout admission. - Chest x-ray at admission shows diffuse patchiness within both lungs consistent with moderate pulmonary edema vs pneumonia - CHF as below - Complete course of oral azithromycin and Ceftin //possible Diastolic CHF - BNP 200s - Echocardiogram completed revealing ef 50-55%, no RWMA, Moderate elevation in pulm pressures, possibly due to PNA. - monitor for s/sxs of fluid overload - hold home Lasix dose for now //Chronic respiratory failure on home O2 secondary to COPD - Continue O2 via NC. - Continue patient's Spiriva - Duonebs //HTN - better controlled currently - Hyperkalemia improved, resumed home Benicar - monitor BP - clonidine prn //Hypothyroidism, chronic -TSH low. - decreased home dose of synthroid. - recheck thyroid function in 2 mos. //HLD: chronic - continue patient's simvastatin //Methadone Use verified on E-forcse, patient last filled Methadone 10mg q6h #120tabs on by Dr. Lane Jack in [place], [place], and previously prescribed by Dr. Rufino Kirby in [place]. Methadone has been held during this admission as patient came in with altered mental status. - No signs of withdrawal. Mental status has improved. The patient denies any pain. - We'll hold off on methadone and recommend patient follow-up with pain management as outpatient. DVT Prophylaxis: TEDs/SCDs Written by Bernardo Garrido, acting as scribe for Dr. Miller on 01/25/17 at 10:32. This note was transcribed by scribNatacha REAL. I, Dr. Josefa Miller personally performed the history, physical exam, and medical decision making; and confirmed the accuracy of the information in the transcribed note. Authenticated by Dr. Josefa Miller on 01/25/17 at 10:32. Discharge Planning Reportedly patient lives with [id number] (Yola Santana ). Reportedly the patient is unable to go back home due to dementia with previous agitation. PT consulted, recommends SNF, patient agreeable. Case management consulted for DC to SNF. Bernardo Garrido Jan 25, 2017 10:34 Josefa Miller MD Jan 25, 2017 17:17
[2017-01-25] MEDS ORDERED: CEFT500T3 PO (10:36)
[2017-01-25] MEDS ORDERED: LEVO.1 PO (10:36)
[2017-01-25 12:00] VITALS: BP 122/57; PULSE 64; RESP 20; TEMP 97.1; O2SAT 96
[2017-01-25] MEDS: HALOPERIDOL 2 MG TAB PO PRN (12:42)
[2017-01-25 16:00] VITALS: BP 154/70; PULSE 69; RESP 18; TEMP 96.9; O2SAT 97
[2017-01-25] MEDS: AZITHROMYCIN 250 MG TAB PO SCH (17:31)
[2017-01-25 20:00] VITALS: BP 138/58; PULSE 76; RESP 18; TEMP 97.2; O2SAT 95
[2017-01-25] MEDS: QUEtiapine FUMARATE 25 MG TAB PO SCH (20:19)
--- NOTE | 2017-01-25 21:44 | HHI.PR ---
Addendum to Inpatient Note Addendum Reason: Additional Documentation Additional Information I was called by the patient's nurse because the patient has a painful rash on her right buttock and they were concerned it might be shingles. He presented to the patient's bedside and examined the area. There is a cluster of pustules on the superior right buttock approximately the diameter of a golf ball and it is tender to palpation. There is also a lesion on the right mid buttock cheek that is a centralized purulent appearing lesion that is approximately the size of a dime with surrounding erythema and it is also tender to palpation. There is no dermatomal distribution of these lesions and the presentation is more consistent with possible staphylococcus infection versus herpes zoster. Have placed an order for a wound culture and Bactroban ointment to be applied to these areas 3 times a day. We'll place the patient on isolation prophylactically until culture results are available. Radha Girard Jan 25, 2017 21:44
[2017-01-25] MEDS: MUPIROCIN 2% OINT 22 GM TUBE TOPICAL SCH ×2 (21:58→23:20)
[2017-01-26] VITALS: BP 125/60; PULSE 70; RESP 18; TEMP 99.4; O2SAT 96
[2017-01-26 04:00] VITALS: BP 128/59; PULSE 60; RESP 18; TEMP 98.6; O2SAT 97
[2017-01-26] MEDS: MUPIROCIN 2% OINT 22 GM TUBE TOPICAL SCH ×2 (05:59→14:07)
[2017-01-26] MEDS: LEVOTHYROXINE SODIUM 100 MCG TAB PO SCH (05:59)
[2017-01-26] MEDS: HEPARIN SODIUM - SQ 10,000 UNITS/ML VIAL SQ SCH ×2 (05:59→19:23)
[2017-01-26 08:58] VITALS: BP 137/65; PULSE 63; RESP 18; TEMP 98.3; O2SAT 97
[2017-01-26] MEDS: PRAVASTATIN SOD 20 MG TAB PO SCH (09:40)
[2017-01-26] MEDS: LOSARTAN 50 MG TAB PO SCH (09:40)
[2017-01-26] MEDS: CEFUROXIME AXETIL 500 MG TAB PO SCH ×2 (09:40→21:59)
[2017-01-26] MEDS: TIOTROPIUM BROMIDE 18 MCG INH INH SCH (09:41)
[2017-01-26] MEDS: SODIUM CHLORIDE 0.9% FLUSH 10 ML FLUSH IV FLUSH SCH ×2 (09:41→22:00)
[2017-01-26 12:06] VITALS: BP 121/80; PULSE 62; RESP 18; TEMP 97.7; O2SAT 94
[2017-01-26] MEDS ORDERED: NAME10TA PO (13:26)
--- NOTE | 2017-01-26 13:27 | HHI.DS ---
Discharge Summary Admission Date Jan 21, 2017 at 15:55 Discharge Date: Jan 27, 2017 Admitting Diagnosis altered mental status, acute metabolic encephalopathy (1) Altered mental status ICD Code: R41.82 Diagnosis: Principal (2) Dementia ICD Code: F03.90 Diagnosis: Secondary (3) Pneumonia ICD Code: J18.9 Diagnosis: Secondary (4) Delirium due to another medical condition ICD Code: F05 Diagnosis: Secondary Procedures none Brief History - From Admission 81-year-old female with history of dementia, hypothyroidism, HTN, HLD, COPD on home O2, CAD, possible CHF, presents under Hammonds act by [employer] for agitation. The Hammonds Act states "Ashley resides with her son, [id number], and grandchildren. Osanntdp-gg-kul stated that she woke up angry. Became combative with family. Ashley fell in her driveway and refused to get up. Ashley refused any and all medical attention. She is on oxygen and has been without it for approximately one hour and thirty minutes. Ashley suffers from dementia and Alzheimer's and takes medication for it. Ashley is unable to determine if she needs care." Currently the patient is in the med/psych unit. She is awake but will not open her eyes. She will not follow commands. She shakes her head no when asked if she has any f/c, n/v, shortness of breath, chest pain or abdominal pain. Patient is a poor historian and I am unable to obtain any reliable information from the patient therefore history collected from review of the medical records. CBC/BMP: 01/23/17 0833 01/25/17 0542 Significant Findings Laboratory Tests Test 01/25/17 05:42 Chloride Level 108 MEQ/L (98-107) Blood Urea Nitrogen 27 MG/DL (7-18) Creatinine 1.01 MG/DL (0.50-1.00) Estimat Glomerular Filtration 52 ML/MIN (>89) Rate PE at Discharge GENERAL: Well-developed well-nourished. In no acute distress. Oriented 3. SKIN: Warm and dry. No lesions noted. HEENT: Normocephalic. Pupils equal and round. Mucous membranes pink and moist. CARDIOVASCULAR: Regular rate and rhythm. No murmur appreciated. RESPIRATORY: No accessory muscle use. Clear to auscultation. Breath sounds equal bilaterally. GASTROINTESTINAL: Abdomen soft, non-tender, nondistended. Bowel sounds x4. MUSCULOSKELETAL: No obvious deformities. No clubbing or cyanosis. No edema. NEUROLOGICAL: Awake and alert. No focal neurological deficits. Moves upper and lower extremities spontaneously. Normal speech. PSYCHIATRIC: Appropriate mood and affect; insight and judgment fair to normal. Hospital Course 81-year-old female with history of dementia admitted under Hammonds act by [facility] Department for increased agitation. Hospitalist service consulted for medical management of hypothyroidism, HTN, HLD, COPD on home O2, CAD, possible CHF and CAP. //Dementia with increased agitation admitted under Hammonds Act -psychiatry feels presentation is due to medical issues and has discharged the pt to medical floor. -Appreciate psychiatry recommendations, does not need inpatient psychiatry, Hammonds act lifted. -Was started on Seroquel by psychiatry, and per discussion with patient's daughter she would like to continue this as the patient has problems sleeping, resumed Seroquel -Oral Haldol if needed //Acute metabolic encephalopathy - suspect multifactorial due to possible acute infection, underlying dementia, and dehydration - Head CT 01/20 reviewed and are unremarkable for acute process. - CBC wnl, Urinalysis negative - Consulted PT/OT - Avoid sedating medications/Benzos. - Improved, currently oriented 3 //Hyperkalemia - suspect secondary to CAMRYN -Potassium 5.4, given Kayexalate 1, potassium currently 4.0 -Improved, follow-up BMP with potassium 3.8 //CAMRYN - Creatinine 1.86, unknown baseline, no previous labs for comparison - Possibly prerenal, due to poor oral intake and dehydration - Avoid nephrotoxic agents - Creatinine improved 1.45 with IVF - Appears euvolemic, DC'd IVF, and creatinine improved to 1.13 //Suspected community acquired pneumonia vs possible CHF Patient denies any respiratory symptoms throughout admission. - Chest x-ray at admission shows diffuse patchiness within both lungs consistent with moderate pulmonary edema vs pneumonia - CHF as below - Complete course of oral azithromycin and Ceftin //possible Diastolic CHF - BNP 200s - Echocardiogram completed revealing ef 50-55%, no RWMA, Moderate elevation in pulm pressures, possibly due to PNA. - monitor for s/sxs of fluid overload - hold home Lasix dose for now with CAMRYN and follow-up with PCP //Chronic respiratory failure on home O2 secondary to COPD - Continue O2 via NC. - Continue patient's Spiriva - Duonebs //HTN - better controlled currently - Hyperkalemia improved, resumed home Benicar - monitor BP - clonidine prn //Hypothyroidism, chronic -TSH low. - decreased home dose of synthroid. - recheck thyroid function in 2 mos. //HLD: chronic - continue patient's simvastatin //Methadone Use verified on E-forcse, patient last filled Methadone 10mg q6h #120tabs on by Dr. Lane Jack in [place], [place], and previously prescribed by Dr. Rufino Kirby in [place]. Methadone has been held during this admission as patient came in with altered mental status. - No signs of withdrawal. Mental status has improved. The patient denies any pain. - We'll hold off on methadone and recommend patient follow-up with pain management as outpatient. - Discussed with patient's daughter concerning the plan he verbalizes understanding //Reported right buttock lesion Suspected to be staph infection. - Continue Bactroban ointment - Follow-up wound culture results DVT Prophylaxis: TEDs/SCDs Patient states her daughter (Yola Santana ) would be her decision maker where she be incapacitated. Yola states that she is the patient's POA. PT consulted, recommends SNF, patient and daughter Yola agreeable. Patient improving. Discharged to SNF in sable condition. To follow up as OP with PCP and consultants. Pt Condition on Discharge: Stable Discharge Disposition: Discharge to SNF Discharge Time: > 30 minutes Discharge Instructions DIET: Follow Instructions for: Heart Healthy Diet Activities you can perform: Regular-No Restrictions, Weight Bearing as Demarcus Follow up Referrals: PCP Follow-up - 2-3 Days New Medications: Memantine (Namenda) 10 Mg Tab 10 MG PO DAILY Alzheimer Disease #30 Ref 0 TAB Cefuroxime (Ceftin) 500 Mg Tab 500 MG PO Q12HR Infection #4 TAB Levothyroxine (Synthroid) 100 Mcg Tab 100 MCG PO DAILY@0600 Thyroid #30 TAB Mupirocin Topical (Mupirocin Topical) 2 % Oint 1 APPLIC TOPICAL Q8HR Apply to buttocks lesion Infection #1 TUBE Quetiapine (Quetiapine) 25 Mg Tab 25 MG PO HS Insomnia #30 TAB Continued Medications: Albuterol 8.5 GM Inh (Proair Hfa 8.5 GM Inh) 90 Mcg/Act Aer 1 PUFF INH Q4H 108 mcg/actuation PRN SHORTNESS OF BREATH Ref 0 INHALER Docusate Sodium (Dulcolax Stool Softener) 100 Mg Cap 100 MG PO BID Prevent Constipation Ref 0 CAP Nitroglycerin SL (Nitrostat SL) 0.4 Mg Subl 0.4 MG SL DIRECTED 1 tablet under the tongue as needed for chest pain. Repeat every 5 minutes for a total of 3 DOSES or call 911 if NO relief. PRN CHEST PAIN Ref 0 TAB.SL Olmesartan (Benicar) 40 Mg Tab 40 MG PO DAILY Blood Pressure Management Ref 0 TAB Simvastatin (Simvastatin) 10 Mg Tab 10 MG PO DAILY Cholesterol Management Ref 0 TAB Tiotropium Inh (Spiriva Handihaler) 18 Mcg Cap 18 MCG INH DAILY 1 capsule = 18 mcg COPD Ref 0 CAP Discontinued Medications: Furosemide (Furosemide) 20 Mg Tab 20 MG PO DAILY Ref 0 TAB Levothyroxine (Synthroid) 175 Mcg Tab 175 MCG PO DAILY Thyroid Ref 0 TAB Methadone (Methadone) 10 Mg Tab 10 MG PO Q6HR PRN PAIN SCALE 1 TO 10 Ref 0 TAB Potassium Chloride ER (Klor-Con 10) 10 Meq Tab 10 MEQ PO DAILY Electrolyte Replacement Ref 0 TAB Josefa Miller MD Jan 26, 2017 13:27
--- NOTE | 2017-01-26 15:34 | HHI.PR ---
Subjective Remarks In bed, says she has no pain. She feels tired today. No agitation overnight. No fever or chills. Did not eat breakfast. No n/v/d/c. Objective Vitals Vital Signs Date Time Temp Pulse Resp B/P Pulse Ox O2 Delivery O2 Flow Rate FiO2 01/26/17 12:06 97.7 62 18 121/80 94 01/26/17 09:30 Nasal Cannula 2.00 01/26/17 08:58 98.3 63 18 137/65 97 01/26/17 04:00 98.6 60 18 128/59 97 01/26/17 00:00 99.4 70 18 125/60 96 01/25/17 20:00 97.2 76 18 138/58 95 01/25/17 16:00 96.9 69 18 154/70 97 I/O 01/25/17 01/25/17 01/25/17 01/26/17 01/26/17 01/26/17 07:00 15:00 23:00 07:00 15:00 23:00 Intake Total 100 ml 480 ml 300 ml 120 ml 600 ml Output Total 400 ml Balance 100 ml 480 ml -100 ml 120 ml 600 ml Intake Oral 100 ml 480 ml 300 ml 120 ml 600 ml Output Urine Total 400 ml # Voids 3 1 2 4 Result Diagram: 01/23/17 0833 01/25/17 0542 Objective Remarks GENERAL: Well-developed well-nourished. In no acute distress. Oriented 3. SKIN: Warm and dry. No lesions noted. HEENT: Normocephalic. Pupils equal and round. Mucous membranes pink and moist. CARDIOVASCULAR: Regular rate and rhythm. No murmur appreciated. RESPIRATORY: No accessory muscle use. Clear to auscultation. Breath sounds equal bilaterally. GASTROINTESTINAL: Abdomen soft, non-tender, nondistended. Bowel sounds x4. MUSCULOSKELETAL: No obvious deformities. No clubbing or cyanosis. No edema. NEUROLOGICAL: Awake and alert. No focal neurological deficits. Moves upper and lower extremities spontaneously. Normal speech. PSYCHIATRIC: Appropriate mood and affect; insight and judgment fair to normal. 81-year-old female with history of dementia admitted under Hammonds act by [facility] Department for increased agitation. Hospitalist service consulted for medical management of hypothyroidism, HTN, HLD, COPD on home O2, CAD, possible CHF and CAP. //Dementia with increased agitation admitted under Hammonds Act -psychiatry feels presentation is due to medical issues and has discharged the pt to medical floor. -Appreciate psychiatry recommendations, does not need inpatient psychiatry, Hammonds act lifted. -Was started on Seroquel at night by psychiatry, and per discussion with patient's daughter she would like to continue this as the patient has problems sleeping -Oral Haldol if needed //Acute metabolic encephalopathy - suspect multifactorial due to possible acute infection, underlying dementia, and dehydration - Head CT 01/20 reviewed and are unremarkable for acute process. - CBC wnl, Urinalysis negative - Consulted PT/OT - Avoid sedating medications/Benzos. - Improved, currently oriented 3 //Hyperkalemia - suspect secondary to CAMRYN -Potassium 5.4, given Kayexalate 1, potassium currently 4.0 -Improved, follow-up BMP with potassium 3.8 //CAMRYN - Creatinine 1.86, unknown baseline, no previous labs for comparison - Possibly prerenal, due to poor oral intake and dehydration - Avoid nephrotoxic agents - Creatinine improved 1.45 with IVF - Appears euvolemic, DC'd IVF, and creatinine improved to 1.13 //Suspected community acquired pneumonia vs possible CHF Patient denies any respiratory symptoms throughout admission. - Chest x-ray at admission shows diffuse patchiness within both lungs consistent with moderate pulmonary edema vs pneumonia - CHF as below - Complete course of oral azithromycin and Ceftin //possible Diastolic CHF - BNP 200s - Echocardiogram completed revealing ef 50-55%, no RWMA, Moderate elevation in pulm pressures, possibly due to PNA. - monitor for s/sxs of fluid overload - hold home Lasix dose for now //Chronic respiratory failure on home O2 secondary to COPD - Continue O2 via NC. - Continue patient's Spiriva - Duonebs //HTN - better controlled currently - Hyperkalemia improved, resumed home Benicar - monitor BP - clonidine prn //Hypothyroidism, chronic -TSH low. - decreased home dose of synthroid. - recheck thyroid function in 2 mos. //HLD: chronic - continue patient's simvastatin //Methadone Use verified on E-forcse, patient last filled Methadone 10mg q6h #120tabs on by Dr. Lane Jack in [place], [place], and previously prescribed by Dr. Rufino Kirby in [place]. Methadone has been held during this admission as patient came in with altered mental status. - No signs of withdrawal. Mental status has improved. The patient denies any pain. - We'll hold off on methadone and recommend patient follow-up with pain management as outpatient. DVT Prophylaxis: TEDs/SCDs Discharge Planning Reportedly patient lives with [id number] (Yola Santana ). Reportedly the patient is unable to go back home due to dementia with previous agitation. PT consulted, recommends SNF, patient agreeable. Case management consulted for DC to SNF. A/P Assessment and Plan 81-year-old female with history of dementia admitted under Hammonds act by [facility] Department for increased agitation. Hospitalist service consulted for medical management of hypothyroidism, HTN, HLD, COPD on home O2, CAD, possible CHF and CAP. //Dementia with increased agitation admitted under Hammonds Act -psychiatry feels presentation is due to medical issues and has discharged the pt to medical floor. -Appreciate psychiatry recommendations, does not need inpatient psychiatry, Hammonds act lifted. -Was started on Seroquel at night by psychiatry, and per discussion with patient's daughter she would like to continue this as the patient has problems sleeping -Oral Haldol if needed. Restart patient Namanda. //Acute metabolic encephalopathy - suspect multifactorial due to possible acute infection, underlying dementia, and dehydration - Head CT 01/20 reviewed and are unremarkable for acute process. - CBC wnl, Urinalysis negative - Consulted PT/OT - Avoid sedating medications/Benzos. - Improved, currently oriented 3 //Hyperkalemia - suspect secondary to CAMRYN -Potassium 5.4, given Kayexalate 1, potassium currently 4.0 -Improved, follow-up BMP with potassium 3.8 //CAMRYN - Creatinine 1.86, unknown baseline, no previous labs for comparison - Possibly prerenal, due to poor oral intake and dehydration - Avoid nephrotoxic agents - Creatinine improved 1.45 with IVF - Appears euvolemic, DC'd IVF, and creatinine improved to 1.13 //Suspected community acquired pneumonia vs possible CHF Patient denies any respiratory symptoms throughout admission. - Chest x-ray at admission shows diffuse patchiness within both lungs consistent with moderate pulmonary edema vs pneumonia - CHF as below - Complete course of oral azithromycin and Ceftin //possible Diastolic CHF - BNP 200s - Echocardiogram completed revealing ef 50-55%, no RWMA, Moderate elevation in pulm pressures, possibly due to PNA. - monitor for s/sxs of fluid overload - hold home Lasix dose for now //Chronic respiratory failure on home O2 secondary to COPD - Continue O2 via NC. - Continue patient's Spiriva - Duonebs //HTN - better controlled currently - Hyperkalemia improved, resumed home Benicar - monitor BP - clonidine prn //Hypothyroidism, chronic -TSH low. - decreased home dose of synthroid. - recheck thyroid function in 2 mos. //HLD: chronic - continue patient's simvastatin //Methadone Use verified on E-forcse, patient last filled Methadone 10mg q6h #120tabs on by Dr. Lane Jack in [place], [place], and previously prescribed by Dr. Rufino Kirby in [place]. Methadone has been held during this admission as patient came in with altered mental status. - No signs of withdrawal. Mental status has improved. The patient denies any pain. - We'll hold off on methadone and recommend patient follow-up with pain management as outpatient. DVT Prophylaxis: TEDs/SCDs Discharge Planning Plan to DC to SNF Josefa Miller MD Jan 26, 2017 15:34
[2017-01-26 16:57] VITALS: BP 149/68; PULSE 79; RESP 17; TEMP 95.5; O2SAT 97
[2017-01-26] MEDS: AZITHROMYCIN 250 MG TAB PO SCH (19:23)
[2017-01-26 21:22] VITALS: BP 110/55; PULSE 78; RESP 18; TEMP 98.2; O2SAT 96
[2017-01-26] MEDS: QUEtiapine FUMARATE 25 MG TAB PO SCH (21:59)
[2017-01-27 01:06] VITALS: BP 123/58; PULSE 68; RESP 18; TEMP 99; O2SAT 97
[2017-01-27] MEDS: HALOPERIDOL 2 MG TAB PO PRN (01:23)
[2017-01-27] MEDS: MUPIROCIN 2% OINT 22 GM TUBE TOPICAL SCH ×2 (05:41→14:08)
[2017-01-27] MEDS: HEPARIN SODIUM - SQ 10,000 UNITS/ML VIAL SQ SCH (05:41)
[2017-01-27] MEDS: LEVOTHYROXINE SODIUM 100 MCG TAB PO SCH (05:41)
[2017-01-27 05:49] VITALS: BP 112/52; PULSE 71; RESP 17; TEMP 96.1; O2SAT 97
[2017-01-27] MEDS ORDERED: QUET1TAB7 PO (08:06)
[2017-01-27 08:27] VITALS: BP 114/54; PULSE 62; RESP 20; TEMP 97.9; O2SAT 98
[2017-01-27] MEDS: CEFUROXIME AXETIL 500 MG TAB PO SCH (09:36)
[2017-01-27] MEDS: TIOTROPIUM BROMIDE 18 MCG INH INH SCH (09:37)
[2017-01-27] MEDS: PRAVASTATIN SOD 20 MG TAB PO SCH (09:37)
[2017-01-27] MEDS: SODIUM CHLORIDE 0.9% FLUSH 10 ML FLUSH IV FLUSH SCH (09:37)
[2017-01-27] MEDS: LOSARTAN 50 MG TAB PO SCH (09:37)
[2017-01-27 12:28] VITALS: BP 125/60; PULSE 92; RESP 20; TEMP 95.7; O2SAT 93
[2017-01-27] MEDS ORDERED: MUPI2OIN TOPICAL (13:30)
--- NOTE | 2017-01-27 13:36 | HHI.PR ---
Subjective Remarks Follow-up for altered mental status. Patient is doing well today. She denies any chest pain. She does have some mild shortness breath, on O2 at home. She denies any cough. She denies any abdominal pain, nausea, vomiting. She is oriented to self and place, but today she is does not recall the year. She is agreeable for SNF. Objective Vitals Vital Signs Date Time Temp Pulse Resp B/P Pulse Ox O2 Delivery O2 Flow Rate FiO2 01/27/17 12:28 95.7 92 20 125/60 93 01/27/17 08:27 97.9 62 20 114/54 98 01/27/17 05:49 96.1 71 17 112/52 97 01/27/17 01:06 99.0 68 18 123/58 97 01/26/17 21:22 98.2 78 18 110/55 96 01/26/17 20:30 96 Nasal Cannula 2.00 01/26/17 16:57 95.5 79 17 149/68 97 I/O 01/26/17 01/26/17 01/26/17 01/27/17 01/27/17 01/27/17 07:00 15:00 23:00 07:00 15:00 23:00 Intake Total 120 ml 600 ml Output Total 200 ml Balance 120 ml 600 ml -200 ml Intake Oral 120 ml 600 ml Output Urine Total 200 ml # Voids 2 4 4 # Bowel Movements 1 Result Diagram: 01/23/17 0833 01/25/17 0542 Objective Remarks GENERAL: Well-developed well-nourished. In no acute distress. Oriented 2 SKIN: Warm and dry. No lesions noted. HEENT: Normocephalic. Pupils equal and round. Mucous membranes pink and moist. CARDIOVASCULAR: Regular rate and rhythm. No murmur appreciated. RESPIRATORY: No accessory muscle use. Clear to auscultation. Breath sounds equal bilaterally. GASTROINTESTINAL: Abdomen soft, non-tender, nondistended. Bowel sounds x4. MUSCULOSKELETAL: No obvious deformities. No clubbing or cyanosis. No edema. NEUROLOGICAL: Awake and alert. No focal neurological deficits. Moves upper and lower extremities spontaneously. Normal speech. PSYCHIATRIC: Appropriate mood and affect; insight and judgment fair to normal. A/P Assessment and Plan 81-year-old female with history of dementia admitted under Hammonds act by [employer] for increased agitation. Hospitalist service consulted for medical management of hypothyroidism, HTN, HLD, COPD on home O2, CAD, possible CHF and CAP. //Dementia with increased agitation admitted under Hammonds Act -psychiatry feels presentation is due to medical issues and has discharged the pt to medical floor. -Appreciate psychiatry recommendations, does not need inpatient psychiatry, Hammonds act lifted. -Was started on Seroquel by psychiatry, and per discussion with patient's daughter she would like to continue this as the patient has problems sleeping, resumed Seroquel -Oral Haldol if needed //Acute metabolic encephalopathy - suspect multifactorial due to possible acute infection, underlying dementia, and dehydration - Head CT 01/20 reviewed and are unremarkable for acute process. - CBC wnl, Urinalysis negative - Consulted PT/OT - Avoid sedating medications/Benzos. - Improved, currently oriented 3 //Hyperkalemia - suspect secondary to CARMYN -Potassium 5.4, given Kayexalate 1, potassium currently 4.0 -Improved, follow-up BMP with potassium 3.8 //CAMRYN - Creatinine 1.86, unknown baseline, no previous labs for comparison - Possibly prerenal, due to poor oral intake and dehydration - Avoid nephrotoxic agents - Creatinine improved 1.45 with IVF - Appears euvolemic, DC'd IVF, and creatinine improved to 1.13 //Suspected community acquired pneumonia vs possible CHF Patient denies any respiratory symptoms throughout admission. - Chest x-ray at admission shows diffuse patchiness within both lungs consistent with moderate pulmonary edema vs pneumonia - CHF as below - Complete course of oral azithromycin and Ceftin //possible Diastolic CHF - BNP 200s - Echocardiogram completed revealing ef 50-55%, no RWMA, Moderate elevation in pulm pressures, possibly due to PNA. - monitor for s/sxs of fluid overload - hold home Lasix dose for now with CAMRYN and follow-up with PCP //Chronic respiratory failure on home O2 secondary to COPD - Continue O2 via NC. - Continue patient's Spiriva - Duonebs //HTN - better controlled currently - Hyperkalemia improved, resumed home Benicar - monitor BP - clonidine prn //Hypothyroidism, chronic -TSH low. - decreased home dose of synthroid. - recheck thyroid function in 2 mos. //HLD: chronic - continue patient's simvastatin //Methadone Use verified on E-forcse, patient last filled Methadone 10mg q6h #120tabs on by Dr. Lane Jack in [place], [place], and previously prescribed by Dr. Rufino Kirby in [place]. Methadone has been held during this admission as patient came in with altered mental status. - No signs of withdrawal. Mental status has improved. The patient denies any pain. - We'll hold off on methadone and recommend patient follow-up with pain management as outpatient. - Discussed with patient's daughter concerning the plan he verbalizes understanding //Reported right buttock lesion Suspected to be staph infection. - Continue Bactroban ointment - Follow-up wound culture results DVT Prophylaxis: TEDs/SCDs Written by Bernardo Garrido, acting as scribe for Dr. Miller on 01/27/17 at 13:36. This note was transcribed by hilario REAL. I, Dr. Josefa Miller personally performed the history, physical exam, and medical decision making; and confirmed the accuracy of the information in the transcribed note. Authenticated by Dr. Josefa Miller on 01/27/17 at 13:36. Discharge Planning Patient states her daughter (Yola Santana ) would be her decision maker where she be incapacitated. Yola states that she is the patient's POA. PT consulted, recommends SNF, patient and daughter Yola agreeable. Case management consulted for DC to SNF when arranged. Bernardo Garrido Jan 27, 2017 13:36 Josefa Miller MD Jan 27, 2017 13:59
== END 2017-01-27 18:37 | DRG 193 ==
LOC: N05A 15:55
PROVIDERS: ADMIT Hospitalist; ATTEND Hospitalist
DX: J18.9 Pneumonia, unspecified organism (principal); G93.41 Metabolic encephalopathy; N17.9 Acute kidney failure, unspecified; J96.10 Chronic respiratory failure, unspecified whether with hypoxia or hypercapnia; F02.81 Dementia in other diseases classified elsewhere, unspecified severity, with behavioral disturbance; I50.30 Unspecified diastolic (congestive) heart failure; F05 Delirium due to known physiological condition; Z99.81 Dependence on supplemental oxygen; G30.9 Alzheimer's disease, unspecified; J44.9 Chronic obstructive pulmonary disease, unspecified; E78.5 Hyperlipidemia, unspecified; E03.9 Hypothyroidism, unspecified; I25.10 Atherosclerotic heart disease of native coronary artery without angina pectoris; E87.5 Hyperkalemia; F11.90 Opioid use, unspecified, uncomplicated; E86.0 Dehydration; L98.9 Disorder of the skin and subcutaneous tissue, unspecified
CPT/HCPCS: 76937; 80048; 80053; 85025; 86403; 87070; 87205; J0696; J1630; J1644; J7030